=== PATIENT | male | born 1960 | race Caucasian/White ===

== ENCOUNTER 2023-06-14 01:09 | Inpatient (IN) | payer MEDICARE, SELFPAY ==
[2023-06-14] VITALS (79 sets, daily range): BP systolic 80–147; BP diastolic 37–81; PULSE 58–108; RESP 11–23; TEMP 36.4–37.1; O2SAT 78–100; BMI 33.4
--- NOTE | 2023-06-14 02:35 | PC.NURSE ---
Arrival Patient arrived to unit at 0106. All vital signs stable, patient pleasantly confused. Dr. Morris at bedside at about 0200. Orders received to start the following home medications as per home dosing: atorvastatin, lisinopril, albuterol, lovenox, buspar, famotidine, and risperidone. Orders placed.
[2023-06-14 03:11] LABS: Glucose Point of Care 107 mg/dL (70-110)
--- NOTE | 2023-06-14 03:25 | ECG_ITS ---
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 Measurements Intervals [place] Rate: 86 P: 27 MO: 195 QRS: 47 QRSD: 81 T: 48 QT: 330 QTc: 395 Interpretive Statements SINUS RHYTHM No previous ECG available for comparison Electronically Signed On 06-14-2023 12:06:12 CDT by Doug Young M.D. [id number]
[2023-06-14] MEDS: sodium chloride 0.9% 1,000 ML 75 ML IV (03:46)
[2023-06-14] MEDS: pantoprazole 40 mg SDV IVP (03:47)
[2023-06-14 05:18] LABS: Basophils # 0.1 10^3/uL (0.0-0.1); Basophils % 0.8 %; Eosinophils % 0.3 %; Hematocrit 30.5 % (37-53); Lymphocytes # 1.1 10^3/uL (0.8-4.8); Mean Corpuscular HGB Conc 32.1 g/dL (30-55); Mean Corpuscular Hemoglobin 30.7 pg (27-33); Mean Corpuscular Volume 95.6 fl (82-101); Mean Platelet Volume 9.7 fL (7.4-10.4); Monocytes # 0.6 10^3/uL (0.2-0.9); Monocytes % 9.5 %; Neutrophils # 4.52 10^3/uL (1.8-7.7); Neutrophils % 71.9 %; Nucleated Red Blood Cells % 0 %; Platelet Count 227 10^3/cmm (157-399); Red Blood Count 3.19 10^6/uL (3.85-5.65); Red Cell Distribution Width 14.3 % (12.1-15.1); White Blood Count 6.29 10^3/uL (3.29-11.43)
--- NOTE | 2023-06-14 05:22 | PM.HP ---
Providers/Chief Complaint Admitting Physician: Kavita Morris MD Chief Complaint: AMS, renal failure History of Present Illness Jc Alfonso is a 62 year old male with history of asthma/COPD ,depression hypertension GERD was transferred from [facility] for acute renal failure. As per the ER physician he was brought in by his girlfriend for altered mental status. She reported that he did not take his regular home medications for the last 2 days. He was found to be confused and on arrival in ER was found to have BUN 92 , CPK 191 and and serum creatinine of 7.6. He was also positive for amphetamine. He received 4 L of fluids in ER and creatinine improved from 7.6-5.9. No prior history of CKD. On arrival he was awake and oriented x2. He denied any nausea vomiting diarrhea urinary or bowel complaints. His KUB and CT abdomen was normal. Review of Systems Narrative: Review of systems is negative except for HPI Medications/Allergies Home Medications Medication Instructions Recorded Confirmed Last Taken Type albuterol 90 mcg/actuation aerosol 90 mcg inhalation Q4H PRN 06/14/23 06/14/23 Unknown History inhaler Shortness Of Breath atorvastatin 40 mg tablet 40 mg PO DAILY 06/14/23 06/14/23 Unknown History budesonide-formoterol HFA 160 2 puff inhalation BID 06/14/23 06/14/23 Unknown History mcg-4.5 mcg/actuation aerosol inhaler (Symbicort) buspirone 10 mg tablet 10 mg PO BID 06/14/23 06/14/23 Unknown History enoxaparin 80 mg/0.8 mL 80 mg SUBCUT Q12H 06/14/23 06/14/23 Unknown History subcutaneous syringe famotidine 40 mg tablet 40 mg PO BID 06/14/23 06/14/23 Unknown History furosemide 20 mg tablet 20 mg PO BID 06/14/23 06/14/23 Unknown History gabapentin 300 mg capsule 300 mg PO TID 06/14/23 06/14/23 Unknown History lisinopril 40 mg tablet 40 mg PO DAILY 06/14/23 06/14/23 Unknown History meloxicam 15 mg tablet 15 mg PO DAILY 06/14/23 06/14/23 Unknown History risperidone 1 mg tablet 1 mg PO BID 06/14/23 06/14/23 Unknown History spironolactone 25 mg tablet 25 mg PO DAILY 06/14/23 06/14/23 Unknown History tiotropium bromide 18 mcg capsule 18 mcg inhalation DAILY 06/14/23 06/14/23 Unknown History with inhalation device (Spiriva with HandiHaler) Allergies Allergy/AdvReac Type Severity Reaction Status Date / Time No Known Allergies Allergy Verified 06/14/23 03:43 PFSH Acute PFSH: Medical History (Updated 06/14/23 @ 05:31 by Kavita Morris MD) Arteriopathy, cervical, 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 Data 06/14/23 04:02 06/14/23 04:02 EKG 1: My Interpretation: Normal sinus rhythm A&P Assessment and plan (1) Acute renal failure: Acute renal failure etiology unknown, likely secondary to dehydration Need to rule out acute on chronic renal failure Nephrology consult in a.m. Continue IV fluids for now Recheck labs in a.m. (2) Altered mental status: Altered mental status likely secondary to drug overdose. Will monitor in ICU for withdrawal Seizure and fall precautions He is hemodynamically stable for now Continue IV fluids normal saline at 75 MLS per hour. Plan Continue home medications Clear liquid for now Full code Attestations Medical Necessity Statement*: Needs continued hospitalization for more than 2 more days for acute renal failure and altered mental status. Needs nephrology consult and management Time Spent in Patient Care: 35 minutes Coding Level of Care Code Critical Care >/= 30 minutes Diagnoses Acute renal failure N17.9 Altered mental status R41.82 Time Spent (min) 35
[2023-06-14 05:35] LABS: Alanine Aminotransferase 11 U/L (0-41); Albumin Level 3.8 g/dL (3.5-5.2); Alkaline Phosphatase 91 U/L (40-130); Anion Gap 16.8 (5-19); Aspartate Amino Transferase 26 U/L (0-40); Blood Urea Nitrogen 74 mg/dL (8-23); Calcium 8.7 mg/dL (8.5-10.5); Carbon Dioxide 15 mmol/L (22-29); Chloride 114 mmol/L (98-107); Globulin 3.2 g/dL (1.3-4.6); Glomerular Filtration Rate 15.4 mL/min (90-130); Glucose 95 mg/dL (65-115); Magnesium 2.1 mg/dL (1.7-2.3); Osmolality Calculated 312 mOsm/kg (285-295); Phosphorus 3.8 mg/dL (2.5-4.5); Potassium 5.8 mmol/L (3.5-5.1); Sodium 140 mmol/L (136-145); Total Bilirubin 0.2 mg/dL (0.15-1.2)
[2023-06-14] MEDS: enoxaparin 80 mg/0.8 mL Syringe SUBCUT (05:35)
[2023-06-14] MEDS: sodium chloride 0.9% 1,000 ML 999 ML IV ×2 (06:29→21:46)
--- NOTE | 2023-06-14 06:35 | PC.NURSE ---
Blood Pressure Patient's blood pressure MAPs ranging from 55-61 while resting. Cheetah assessment performed; patient fluid responsive with an SVI of 10.4%. Dr. Morris notified; order received for 1 L NS bolus once. See MAR for details.
[2023-06-14] MEDS: albuterol 2.5 mg/3 mL Neb INHALATION ×4 (07:43→19:59)
[2023-06-14] MEDS: ipratropium 0.5 mg/2.5 mL Neb INHALATION ×4 (07:43→19:59)
--- NOTE | 2023-06-14 08:41 | USCV_ITS ---
Jc Alfonso Age: 62 Gender: M : 1960 Exam Date: 06/14/2023 09:00 Ordering Phys: Feroz Bolivar MD Technologist: Martir Bernal [place] [facility] [place]: chest pain BP: 128 / 80 HR: 93 Rhythm: Sinus Technical Quality: Suboptimal MEASUREMENTS (Male / Female) Normal Values 2D ECHO LV Diastolic Diameter PLAX 4.4 cm 4.2 - 5.9 / 3.9 - 5.3 cm LV Systolic Diameter PLAX 3.1 cm IVS Diastolic Thickness 1.1 cm 0.6 - 1.0 / 0.6 - 0.9 cm IVS Systolic Thickness 1.6 cm LVPW Diastolic Thickness 1.3 cm 0.6 - 1.0 / 0.6 - 0.9 cm LVPW Systolic Thickness 1.5 cm LVOT Diameter 2.1 cm LV Ejection Fraction 2D Teich 54.3 % LV Ejection Fraction MOD 2C 72.8 % LV Ejection Fraction 2C AL 73.1 % LA Diameter 3.7 cm M-MODE Aortic Annulus Diameter 3.9 cm LA Ao Ratio MM 1.1 MV E Point Septal Separation 0.8 cm DOPPLER AV Peak Velocity 129.0 cm/s LVOT Peak Velocity 95.0 cm/s AV Area Cont Eq vti 3.1 cm squared AV Area Cont Eq pk 2.5 cm squared MV Area PHT 4.5 cm squared Mitral E to A Ratio 1.1 MV E' Velocity 44.0 cm/s Mitral E to MV E' Ratio 8.2 Mitral E to LV E' Lateral Ratio 8.9 Mitral E to LV E' Septal Ratio 7.8 TR Peak Velocity 95.0 cm/s TR Peak Gradient 3.6 mmHg TV Peak E Velocity 80.0 cm/s Right Atrial Pressure 3.0 mmHg Pulmonary Artery Systolic Pressu 6.6 mmHg RV Acceleration Time 0.1 s FINDINGS Left Ventricle The ventricle is not well seen. It is likely normal in size and function. Ejection fraction is probably 55 to 60%. Diastolic function not determined. Right Ventricle Normal right ventricular size and systolic function. Right Atrium The right atrium is normal in size. Left Atrium The left atrium is normal in size. Mitral Valve Mitral valve not well seen. No obvious stenosis or regurgitation. Aortic Valve Aortic valve not well seen. No obvious stenosis or regurgitation. Tricuspid Valve Tricuspid valve not well visualized. Pulmonic Valve Pulmonic valve not well visualized. Pericardium Normal pericardium without effusion. Aorta Aorta not well seen. IVC IVC not well seen. CONCLUSIONS The ventricle is not well seen. It is likely normal in size and function. Ejection fraction is probably 55 to 60%. Diastolic function not determined. There are no prior echocardiogram studies to compare. Dr. Deniz Crenshaw MD (Electronically Signed) Final Date: 14 June 2023 18:05 S
--- NOTE | 2023-06-14 08:43 | CT_ITS ---
WS: [id number] CT ABDOMEN PELVIS TECHNIQUE: Noncontrast CT of the abdomen and pelvis with coronal and sagittal reformatted images. CLINICAL INFORMATION: nidia, ? obs nephropathy COMPARISON: CT 06/13/2023 and 08/18/2018 DLP: 826.[address] scans at [facility] use at least one of these dose optimization techniques: automated e xposure control; mA and/or kV adjustment per patient size (includes targeted exams where dose is matc hed to clinical indication); or iterative reconstruction. FINDINGS: Lung bases are well aerated. Slight subsegmental atelectasis in the lung bases. Normal noncontrast li geraldo and spleen. Normal GE junction. Adrenal glands are normal. Aortic graft which arises from the distal thoracic aorta. In line common iliac arteries arising from the graft. Contrast not administered. IVC filter. Small renal cysts bilaterally. Intramuscular lipoma with calcifications LEFT mid lateral abdominal wall. Increased attenuation RIGHT renal lesion likely hyperdense cyst unchanged since 023. Noncontrast gallbladder appears normal. Noncontrast pancreas appears normal. Adrenal glands are normal. No hydronephrosis. Chan catheter. Bladder is decompressed. No abdominal or pelvic lymphadeno yulissa. Widemouth fat-containing umbilical hernia. No herniated bowel. Hyperdense mixed attenuation hematoma in the LEFT rectus abdominous unchanged since 06/13/2023. Some ov erlying induration. Recommend follow-up to resolution. Normal sigmoid colon. No evidence of small or large bowel obstruction. IMPRESSION: 1. Mixed attenuation LEFT rectus sheath hematoma unchanged since 06/13/2023. Recommend follow-up to re solution. This measures approximately 2.6 x 4.2 x 7.3 cm AP by transverse by craniocaudal. 2. No hydronephrosis in either kidney. 3. Bilateral renal cysts. Some are too small to characterize. Increased attenuation RIGHT renal lesi on likely proteinaceous or hemorrhagic cyst. This can be followed up with ultrasound on an elective b asis. 4. Widemouth umbilical hernia containing fat. No herniated bowel. No evidence of bowel obstruction. 5. Aortic graft from the distal thoracic aorta inline with both common iliac arteries. Contrast not administered. 6. No other acute findings.
[2023-06-14] MEDS: gabapentin 300 mg Capsule PO ×3 (08:55→21:46)
[2023-06-14] MEDS: BuSPIRONE 10 mg Tablet PO ×2 (08:55→17:57)
[2023-06-14] MEDS: risperiDONE 1 mg Tablet PO ×2 (08:55→17:57)
[2023-06-14] MEDS: famotidine 20 mg Tablet 40 MG PO ×2 (08:55→17:57)
--- NOTE | 2023-06-14 09:05 | USCV_ITS ---
Jc Alfonso Age: 62 Gender: M : 1960 Exam Date: 06/14/2023 09:14 Ordering Phys: Feroz Bolivar MD Technologist: Martir Bernal [place] [facility] [place]: ? pt claims had aaa repair HISTORY: Diameter (cm) AP x Transverse x Length Velocity (cm/s) Waveform Prox Aorta: 2.24 x 2.55 x 73.00 Biphasic Mid Aorta: 1.82 x 2.75 x 45.10 Biphasic Distal Aorta: 2.33 x 1.43 x 48.30 Biphasic Right Iliac Prox: 1.26 x 1.40 x 77.30 Biphasic Left Iliac Prox: 1.54 x 1.61 x 83.00 Biphasic Stent Prox Landing x x Aneurysmal Sac Max x x Lt Lat Sac Dim Rt Lat Sac Dim Stent Dist Landing x x Right Iliac Stent x x Left Iliac Stent x x Right Renal Art Left Renal Art FINDINGS: Comparison: none available. A complete assessment of the abdominal aorta was not possible. No evidence of abdominal aortic aneurysm. No significant stenosis noted in the abdominal aorta. CONCLUSIONS A complete assessment of the abdominal aorta was not possible. Ectatic abdominal aorta with evidence of atherosclerotic plaque noted. Dr. Alondra Pierre DO (Electronically Signed) Final Date: 16 June 2023 07:33 S
[2023-06-14 09:27] LABS: HIV 1 & 2 Antibody Non-Reactive (Non-Reactiv); HIV 1 & 2 Antigen Non-Reactive (Non-Reactiv)
[2023-06-14 09:28] LABS: Iron 54 ug/dL (59-158); Percent Saturation 22.7 % (20-50); Total Iron Binding Capacity 237 mcg/dl; Unsaturated Iron Binding 183 ug/dL (112-347); Vitamin B12 465 pg/mL (232-1245)
[2023-06-14 09:32] LABS: Hepatitis A Antibody IgM Non-Reactive (Nonreactive); Hepatitis B Core AB, Total Reactive (Nonreactive); Hepatitis B Surface AB 22.7 (11.5-1000); Hepatitis B Surface Antigen Non-Reactive (Nonreactive); Hepatitis C Virus Antibody Non-Reactive (Nonreactive)
[2023-06-14 09:42] LABS: Add Urine Microscopic? YES; Bilirubin Urine Neg (Negative); Blood Urine 2+ (Negative); Glucose Urine UA 1+ (Normal); Ketones Urine Negative (Negative); Leukocyte Esterase Urine 1+ (Negative); Nitrate Urine Negative (Negative); Protein Urine Neg (Negative); Specific Gravity, Urine 1.005 (1.005-1.030); Urine Appearance Clear (CLEAR); Urine Color Straw (Yellow); Urobilinogen Urine Norm (Negative); pH Urine 5 (5-7)
[2023-06-14 09:43] LABS: Bacteria Urine TRACE /hpf; RBC Urine 0-4 /hpf (0-2)
[2023-06-14 10:27] LABS: Partial Thromboplastin Time 34.3 SECONDS (23.9-36.7)
[2023-06-14 10:49] LABS: Creatine Phosphokinase 1357 U/L (39-308)
[2023-06-14] MEDS: sodium bicarbonate 650 mg Tablet PO ×3 (11:01→21:45)
[2023-06-14] MEDS: heparin drip 25,000 UNIT/500 ML PREMIX 26 UNIT IV (11:07)
--- NOTE | 2023-06-14 11:23 | PC.NURSE ---
Heparin gtt stopped as per Dr Richmond's phone call. Abdominal hematoma noted on CT.
[2023-06-14 13:11] LABS: Amphetamines Screen Urine Positive (Negative); Barbiturates Screen Urine Negative (Negative); Benzodiazepines Screen Urine Negative (Negative); Cocaine Screen Urine Negative (Negative); Opiate Screen Urine Negative (Negative); PCP Screen Urine Negative (Negative); THC Screen Urine Negative (Negative)
[2023-06-14] MEDS: insulin regular-human 10 UNIT in SYRINGE 1 EACH IVP (13:13)
[2023-06-14] MEDS: dextrose 50% syringe 50 mL IVP (13:13)
[2023-06-14 13:15] LABS: Potassium, Radom Urine 12 mmol/L; Urine Creatinine 50 mg/dL (39-259); Urine Random Chloride 105 mmol/L; Urine Random Sodium 109 mmol/L
[2023-06-14 13:58] LABS: Eosinophil Urine No Eosinophils Seen; Urine Eosinophil Count 0 (0-0)
--- NOTE | 2023-06-14 14:00 | PC.NURSE ---
Pt is becoming more oreinted/cear. He is able to state his name, , year, month and tell some medical history at this time
[2023-06-14] MEDS: sodium chloride 0.9% 1,000 ML 125 ML IV (16:41)
--- NOTE | 2023-06-14 17:05 | PM.PN ---
Subjective Subjective: Considerably today morning from [facility] for renal failure. Chart reviewed. Examination patient sitting comfortably in bed, slightly confused otherwise AO x2-3 on redirection. Patient states he uses meth twice to thrice a week, daily alcohol with 2-3 bottles of beer and few whiskeys. He follows up with Dr. Vinson. States he takes full dose Lovenox for some procedure done to his aorta though he does not remember the procedure. Otherwise not able to provide much history. Seems to have had around 1500 cc of urine since coming to the ICU. Vitals with mean artery pressure mostly over 65 to systolic blood pressure in high 90s. Afebrile saturating well on room air. Blood work shows anemia with hemoglobin of 9.8, hyperkalemia with potassium of 5.6, uremia with BUN of 73, creatinine of 4.1, high anion gap metabolic acidosis Vitals/I&O/Wt Last Vital Signs Temp 98.7 F 06/14/23 07:45 Pulse 93 06/14/23 16:30 Resp 20 H 06/14/23 16:30 BP 99/62 06/14/23 16:30 Pulse Ox 96 06/14/23 16:30 O2 Del Method Room Air 06/14/23 16:30 06/14/23 06/14/23 06/14/23 06:59 14:59 22:59 Intake Total 425.75 / 425.75 1469.533 / 1469.533 683.75 / 2153.283 Output Total 1250 / 1250 710 / 710 1000 / 1710 Balance -824.25 / -824.25 759.533 / 759.533 -316.25 / 443.283 Weight last 48 hrs Weight 93.894 kg Weight 93.894 kg Physical Exam Narrative: General: No acute distress, AO x 2-3 with episodes of confusion HEENT: PERRLA, pupils bilaterally equal and reactive Chest: Normal vesicular breath sounds, no added sounds, equal good air entry bilaterally CVS: S1-S2 regular, no murmurs, no tachycardia, no gallops, no rubs Abdomen: Soft, nontender, no organomegaly, bowel sounds present Neuro: No focal deficits, no facial deformity, AO x3, power 5/5 in all limbs Urinary Catheter Management: Chan: Cath Placed During This Visit: no Reason for Continuing Indwelling Catheter: Accurate Measurement of Urinary Output in Critically Ill Patients Data 06/14/23 04:02 06/14/23 04:10 A&P Assessment and plan (1) Acute renal failure: Most likely in setting of dehydration from poor oral intake while being under influence of amphetamines and alcohol along with chronic oral medications including lisinopril and meloxicam. Medical reconciliation done for nephrotoxic drugs. For now we will stop lisinopril meloxicam spironolactone and Lasix. Check CT abdomen pelvis to rule out obstructive nephropathy. Also gives history of some kind of aortic procedure. Will monitor on CT. Ultrasound abdomen pelvis to monitor for any endovascularly. Unfortunately cannot do CTA given acute kidney injury. Monitor renal panel every 12 hourly. Check urinalysis, urine lites, urine creatinine, urine eosinophils. Strict input output charting. IV hydration with normal saline at 125 cc/h. Check hepatitis panel, HIV, CPK. Check echocardiogram (2) Altered mental status: Altered mental status likely secondary to uremia along with alcohol use and drug overdose. Frequent reorientation. Fluid as above. Monitor for CIWA protocol. (3) Metabolic acidosis: Most likely in setting of acute kidney injury. IV hydration as above. Monitor every 12 hourly. Start on sodium bicarbonate oral 650 3 times daily. If persistent metabolic acidosis will plan for ABG and possible bicarb drip. (4) Hyperkalemia: D50 with 10 units of insulin. In setting of LASHON and lisinopril. Every 12 hourly as above. (5) S/P insertion of endovascular thoracic aortic stent graft: Chronic procedure. Will try to get documents from outpatient hospital regarding further management. Seems to be on anticoagulation chronically with Lovenox 80 mg every 12 hourly. Not sure of the reason. Check for possible thrombus if possible through ultrasound. Cannot do CTA because of LASHON. (6) Rectus sheath hematoma: For now hold off on Lovenox given rectus sheath hematoma. Discussed with radiology. Seems to be relatively fresh. Monitor for anemia or hypotension. (7) Alcohol dependence: (8) Amphetamine abuse: Plan Continue other chronic home medications. Clear liquid diet Famotidine for PUD prophylaxis Attestations Medical Necessity Statement*: Requires further hospitalization for management of acute renal failure with metabolic high anion gap acidosis, persistent hyperkalemia, rectus sheath hematoma in setting of chronic anticoagulation for a possible thoracic aortic endovascular graft Coding Level of Care Code Critical Care >/= 30 minutes Critical care time (in minutes): 60 The high probability of a clinically significant, sudden or life threatening deterioration, as referenced in this documentation, required my full and direct attention, intervention and personal management. The critical care time shown is in addition to time spent performing any reported separately billable procedures and includes the following: [x] Data and vital sign review and interpretation [x] Patient assessment, examination and intervention [x] Medication orders and management [x] Patient/Family updates as able [x] Care Coordination and Documentation. Other Coding Information Prolonged care (total time indicated above or notated here) (Monitoring vitals, electrolytes, gathering information from outside hospital, talking to the physicians) Diagnoses Acute renal failure N17.9 Altered mental status R41.82 Metabolic acidosis E87.20 Hyperkalemia E87.5 S/P insertion of endovascular thoracic aortic stent graft Z95.828 Rectus sheath hematoma S30.1XXA Alcohol dependence F10.20 Amphetamine abuse F15.10
[2023-06-14 18:23] LABS: Albumin Level 3.6 g/dL (3.5-5.2); Blood Urea Nitrogen 51 mg/dL (8-23); Calcium 8.6 mg/dL (8.5-10.5); Carbon Dioxide 16 mmol/L (22-29); Chloride 111 mmol/L (98-107); Glomerular Filtration Rate 27.8 mL/min (90-130); Glucose 91 mg/dL (65-115); Phosphorus 3.1 mg/dL (2.5-4.5); Sodium 139 mmol/L (136-145)
[2023-06-14 18:26] LABS: Anion Gap 17.1 (5-19); Potassium 5.1 mmol/L (3.5-5.1)
--- NOTE | 2023-06-14 18:31 | PC.NURSE ---
Shift summary: Pt has became more clearer thinking and speaking throughout the day. VSS. afberile. He remains sinus to sinus tachycardia on monitor. The bruising and firm area around the scar on his left abdomen remains. He was very briefly started on heparin, due to him taking Lovenox at home, until hematoma noted on CT. Heparin discontinued, was on less than 15 minutes. He was started on Sodium Bicarb tablets. D50 and insulin admin once this sift for the high potassium. Pt has denied pain throughout the shift. Peggy, his ex-, was here this afternoon to visit. She stated he told her he smoked pot then afterwards someone told him it was loaded with acid. His BMP is slowly improving. His urine is pale yellow and clear, Output of 2010 ml this shift. Pt did get out of bed with PT, ambulated then sat up in chair for several hours today without difficulty. He did get out of chair by himself to go back to bed.
[2023-06-14 20:59] LABS: ABG PCO2 33.9 mmHg (35-45); ABG PH Result 7.31 (7.35-7.45); Base Excess ABG -8.5 mmol/L (-2.0-2.0); Blood Gas Allen Test Pos; Blood Gas Sample Site Radial, left; Oxygen Device ROOM AIR; PO2 ABG 33.6 mmHg (80.0-100.0)
[2023-06-14 21:03] LABS: Blood Gas Sample Type Venous
[2023-06-14] MEDS: atorvastatin 40 mg Tablet PO (21:46)
[2023-06-14] MEDS: sodium bicarbonate 8.4% 1 mEq/mL 50mL Syr 100 MEQ IVP (21:46)
[2023-06-15] VITALS (48 sets, daily range): BP systolic 72–145; BP diastolic 43–79; PULSE 61–127; RESP 12–24; TEMP 36.7–36.8; O2SAT 92–100
[2023-06-15] MEDS: sodium chloride 0.9% 1,000 ML 125 ML IV ×2 (00:39→08:45)
[2023-06-15] MEDS: pantoprazole 40 mg SDV IVP (03:04)
[2023-06-15 05:05] LABS: Basophils % 0.7 %; Eosinophils # 0.1 10^3/uL (0.0-0.8); Eosinophils % 1.7 %; Hematocrit 28.5 % (37-53); Lymphocytes # 1.4 10^3/uL (0.8-4.8); Lymphocytes % 23.5 %; Mean Corpuscular Hemoglobin 30.3 pg (27-33); Mean Corpuscular Volume 91.9 fl (82-101); Mean Platelet Volume 9.3 fL (7.4-10.4); Monocytes # 0.6 10^3/uL (0.2-0.9); Monocytes % 9.4 %; Neutrophils # 3.83 10^3/uL (1.8-7.7); Neutrophils % 64.2 %; Nucleated Red Blood Cells % 0 %; Platelet Count 211 10^3/cmm (157-399); Red Cell Distribution Width 14.5 % (12.1-15.1); White Blood Count 5.96 10^3/uL (3.29-11.43)
[2023-06-15 05:22] LABS: Estmated Average Glucose 114; Hemoglobin A1C 5.6 % (4.0-6.0)
[2023-06-15 05:26] LABS: Albumin Level 3.4 g/dL (3.5-5.2); Anion Gap 14.6 (5-19); Blood Urea Nitrogen 37 mg/dL (8-23); Calcium 8.1 mg/dL (8.5-10.5); Carbon Dioxide 19 mmol/L (22-29); Chloride 111 mmol/L (98-107); Glomerular Filtration Rate 38.7 mL/min (90-130); Glucose 89 mg/dL (65-115); Phosphorus 2.4 mg/dL (2.5-4.5); Potassium 4.6 mmol/L (3.5-5.1); Sodium 140 mmol/L (136-145)
[2023-06-15 05:28] LABS: Alanine Aminotransferase 12 U/L (0-41); Albumin Level 3.5 g/dL (3.5-5.2); Alkaline Phosphatase 85 U/L (40-130); Anion Gap 14.5 (5-19); Aspartate Amino Transferase 23 U/L (0-40); Blood Urea Nitrogen 35 mg/dL (8-23); Calcium 8.3 mg/dL (8.5-10.5); Carbon Dioxide 18 mmol/L (22-29); Chloride 112 mmol/L (98-107); Glomerular Filtration Rate 44.3 mL/min (90-130); Glucose 94 mg/dL (65-115); Magnesium 1.5 mg/dL (1.7-2.3); Osmolality Calculated 298 mOsm/kg (285-295); Phosphorus 2.4 mg/dL (2.5-4.5); Potassium 4.5 mmol/L (3.5-5.1); Sodium 140 mmol/L (136-145); Total Bilirubin 0.4 mg/dL (0.15-1.2); Total Protein 6.5 g/dL (6.6-8.7)
[2023-06-15 05:41] LABS: Folate Level 13.9 ng/mL (4.5-32.2)
[2023-06-15] MEDS: albuterol 2.5 mg/3 mL Neb INHALATION (08:06)
[2023-06-15] MEDS: ipratropium 0.5 mg/2.5 mL Neb INHALATION ×3 (08:06→20:34)
[2023-06-15] MEDS: famotidine 20 mg Tablet 40 MG PO ×2 (08:37→17:37)
[2023-06-15] MEDS: risperiDONE 1 mg Tablet PO ×2 (08:37→17:37)
[2023-06-15] MEDS: BuSPIRONE 10 mg Tablet PO ×2 (08:39→17:37)
[2023-06-15] MEDS: aspirin 81 mg EC Tablet PO (08:39)
[2023-06-15] MEDS: sodium bicarbonate 650 mg Tablet PO ×3 (08:39→21:08)
[2023-06-15] MEDS: gabapentin 300 mg Capsule PO ×3 (08:39→21:09)
[2023-06-15] MEDS: sodium chloride 0.45% 1,000 ML 100 ML IV ×2 (10:13→21:09)
[2023-06-15] MEDS: magnesium sulfate premix 2 GM/50 ML PIGGYBACK IV (12:50)
[2023-06-15] MEDS: phosphorus 250 mg Tablet PO (12:50)
[2023-06-15 13:33] LABS: C Reactive Protein 23.7 mg/L (0.0-4.9)
[2023-06-15] MEDS: levalbuterol 0.63 mg/3 mL Neb INHALATION ×2 (13:38→20:34)
[2023-06-15 13:58] LABS: Erythrocyte Sedimentation Rate 30 mm/hr (0-10)
[2023-06-15] MEDS: lanolin oint 7 gm 1 APPLIC TOPICAL (15:00)
[2023-06-15 16:41] LABS: Albumin Level 3.7 g/dL (3.5-5.2); Anion Gap 16.4 (5-19); Blood Urea Nitrogen 25 mg/dL (8-23); Calcium 8.5 mg/dL (8.5-10.5); Carbon Dioxide 22 mmol/L (22-29); Chloride 108 mmol/L (98-107); Glomerular Filtration Rate 51.7 mL/min (90-130); Glucose 149 mg/dL (65-115); Phosphorus 2.6 mg/dL (2.5-4.5); Potassium 5.4 mmol/L (3.5-5.1); Sodium 141 mmol/L (136-145)
--- NOTE | 2023-06-15 16:56 | PM.PN ---
Subjective Subjective: No acute events overnight. Today morning patient seen sitting up in chair. Worked with physical therapy. Looks better. More awake and alert. Denies any nausea, vomiting, headache. States he feels as if his legs are swollen and are mildly sore. Patient is able to give more history today. States he is on full anticoagulation because he has a history of multiple blood clots in his life. States he has an IVC filter placed. He has been on anticoagulation with Lovenox for over 10 years. States he failed Coumadin as his INR was very labile. Blood work today shows a stable hemoglobin of 9.4, platelet count stable at 211, CMP done today morning shows a sodium of 140, potassium of 4.6, creatinine improving to 1.8, BUN of 37, calcium of 8.1, magnesium of 1.5 Vitals/I&O/Wt Last Vital Signs Temp 98.3 F 06/15/23 08:15 Pulse 72 06/15/23 15:30 Resp 16 06/15/23 15:30 BP 145/59 06/15/23 15:30 Pulse Ox 99 06/15/23 15:30 O2 Del Method Room Air 06/15/23 15:30 06/15/23 06/15/23 06/15/23 06:59 14:59 22:59 Intake Total 995.833 / 3149.116 2104.167 / 2104.167 Output Total 1500 / 3510 1150 / 1150 Balance -504.167 / -687.735 4897.167 / 2104.167 -1150 / 954.167 Weight last 48 hrs Weight 95.708 kg Weight 93.894 kg Weight 93.894 kg Physical Exam Narrative: General: No acute distress, AO x 2-3 with episodes of confusion HEENT: PERRLA, pupils bilaterally equal and reactive Chest: Normal vesicular breath sounds, no added sounds, equal good air entry bilaterally CVS: S1-S2 regular, no murmurs, no tachycardia, no gallops, no rubs Abdomen: Soft, nontender, no organomegaly, bowel sounds present Neuro: No focal deficits, no facial deformity, AO x3, power 5/5 in all limbs Urinary Catheter Management: Chan: Cath Placed During This Visit: no Reason for Continuing Indwelling Catheter: Accurate Measurement of Urinary Output in Critically Ill Patients Data 06/15/23 04:47 06/15/23 16:05 A&P Assessment and plan (1) Acute renal failure: Most likely in setting of dehydration from poor oral intake while being under influence of amphetamines and alcohol along with chronic oral medications including lisinopril and meloxicam. Medical reconciliation done for nephrotoxic drugs. For now we will stop lisinopril meloxicam spironolactone and Lasix. Renal functions improving. CT abdomen pelvis appreciated for no obstructive nephropathy, rectus sheath hematoma. Abdominal ultrasound appreciated for endovascular graft at thoracic aortic level. No leakage appreciated. CTA could not be done because of LASHON. Monitor renal panel every 12 hourly. Appreciate urinalysis, urine lites, urine creatinine, urine eosinophils. Strict input output charting. Switch IV fluids to half NS at 100 cc/h. Echocardiogram results appreciated. Replete magnesium, phosphorus. (2) Altered mental status: Resolved. Altered mental status likely secondary to uremia along with alcohol use and drug overdose. Frequent reorientation. Monitor for CIWA protocol. (3) Metabolic acidosis: Resolved. Most likely in setting of acute kidney injury. IV hydration as above. Monitor every 12 hourly. For now continue with sodium bicarbonate oral 650 3 times daily. (4) Hyperkalemia: Resolved in the morning but on repeat lab elevated again. D50 with 10 units of insulin. In setting of LASHON and lisinopril. Every 12 hourly as above. (5) S/P insertion of endovascular thoracic aortic stent graft: Chronic for aortic dissection. Will try to get documents from outpatient hospital regarding further management. Seems to be on anticoagulation chronically with Lovenox 80 mg every 12 hourly. 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 (6) Rectus sheath hematoma: For now hold off on Lovenox given rectus sheath hematoma. Discussed with radiology. Seems to be relatively fresh. Patient agreeable to hold off to AC for now, he understands that he is at the risk of stroke, blood clots. Check ESR, CRP, MEGAN panel. Monitor for anemia or hypotension. (7) Alcohol dependence: (8) Amphetamine abuse: Plan Continue other chronic home medications. Advance to renal none dialysis diet Famotidine for PUD prophylaxis SCDs for DVT prophylaxis, if hemoglobin remains stable will add heparin 5000 every 12 hourly for DVT prophylaxis. Discharge plan: Plan to discharge within next 48 to 72 hours to home with possible home health versus home health exercise program as per PT evaluation once medically stable. Attestations Medical Necessity Statement*: Requires further hospitalization for management of acute kidney injury with hyperkalemia, gap metabolic acidosis in setting of dehydration, rectus sheath hematoma in a patient with chronic anticoagulation for endovascular graft Diagnoses Acute renal failure N17.9 Altered mental status R41.82 Metabolic acidosis E87.20 Hyperkalemia E87.5 S/P insertion of endovascular thoracic aortic stent graft Z95.828 Rectus sheath hematoma S30.1XXA Alcohol dependence F10.20 Amphetamine abuse F15.10
[2023-06-15] MEDS: insulin regular-human 10 UNIT in SYRINGE 1 EACH IVP (17:52)
[2023-06-15] MEDS: dextrose 50% syringe 50 mL IVP (17:52)
--- NOTE | 2023-06-15 19:08 | NUR.SHIFT ---
Shift summary: Pt completed alert and oriented today. Per Peggy, his family, he is back to himself. No complaints of pain throughout the shift. Pt OOB at breakfast and has sat up in chair the rest of the sift. He was willing and cooperative with PT. VSS. Afebrile. His meals were advanced to renal non-dialysis diet, he enjoyed it. His creatinine and BUN are improving more today. He had 250mg phosphorus and 2 gram Magnesium replacement today. HIs last potassium level was high at 5.4, so he received D50 and insulin IV to correct. NO changes to the firm/hardened bruised area around the scare on his left abdomen. No BM today. HIs urine output was 1450ml this shift.
[2023-06-15] MEDS: budesonide 0.5 mg/2 mL Neb INHALATION (20:34)
[2023-06-15] MEDS: atorvastatin 40 mg Tablet PO (21:08)
[2023-06-16] VITALS (24 sets, daily range): BP systolic 89–130; BP diastolic 54–69; PULSE 70–93; RESP 12–18; TEMP 36.5–37.6; O2SAT 95–100
[2023-06-16] MEDS: pantoprazole 40 mg SDV IVP (03:36)
[2023-06-16 05:10] LABS: Basophils # 0.1 10^3/uL (0.0-0.1); Basophils % 0.9 %; Eosinophils # 0.1 10^3/uL (0.0-0.8); Hematocrit 28.9 % (37-53); Lymphocytes # 1.2 10^3/uL (0.8-4.8); Lymphocytes % 18.1 %; Mean Corpuscular HGB Conc 32.9 g/dL (30-55); Mean Corpuscular Hemoglobin 30.1 pg (27-33); Mean Corpuscular Volume 91.5 fl (82-101); Mean Platelet Volume 9.7 fL (7.4-10.4); Monocytes # 0.6 10^3/uL (0.2-0.9); Monocytes % 8.5 %; Neutrophils # 4.79 10^3/uL (1.8-7.7); Neutrophils % 70.1 %; Nucleated Red Blood Cells % 0 %; Platelet Count 217 10^3/cmm (157-399); Red Blood Count 3.16 10^6/uL (3.85-5.65); Red Cell Distribution Width 14.2 % (12.1-15.1); White Blood Count 6.84 10^3/uL (3.29-11.43)
[2023-06-16 05:32] LABS: Alanine Aminotransferase 13 U/L (0-41); Albumin Level 3.7 g/dL (3.5-5.2); Alkaline Phosphatase 101 U/L (40-130); Anion Gap 14.5 (5-19); Aspartate Amino Transferase 16 U/L (0-40); Blood Urea Nitrogen 17 mg/dL (8-23); Calcium 8.5 mg/dL (8.5-10.5); Carbon Dioxide 22 mmol/L (22-29); Chloride 106 mmol/L (98-107); Globulin 2.9 g/dL (1.3-4.6); Glomerular Filtration Rate 61.8 mL/min (90-130); Glucose 99 mg/dL (65-115); Osmolality Calculated 288 mOsm/kg (285-295); Potassium 4.5 mmol/L (3.5-5.1); Sodium 138 mmol/L (136-145); Total Bilirubin 0.5 mg/dL (0.15-1.2); Total Protein 6.6 g/dL (6.6-8.7)
[2023-06-16 05:33] LABS: Albumin Level 3.8 g/dL (3.5-5.2); Anion Gap 14.6 (5-19); Blood Urea Nitrogen 17 mg/dL (8-23); Calcium 8.3 mg/dL (8.5-10.5); Carbon Dioxide 22 mmol/L (22-29); Chloride 106 mmol/L (98-107); Glomerular Filtration Rate 61.8 mL/min (90-130); Glucose 97 mg/dL (65-115); Phosphorus 2.5 mg/dL (2.5-4.5); Potassium 4.6 mmol/L (3.5-5.1); Sodium 138 mmol/L (136-145)
[2023-06-16] MEDS: sodium chloride 0.45% 1,000 ML 100 ML IV (06:44)
[2023-06-16] MEDS: budesonide 0.5 mg/2 mL Neb INHALATION (08:24)
[2023-06-16] MEDS: ipratropium 0.5 mg/2.5 mL Neb INHALATION (08:24)
[2023-06-16] MEDS: levalbuterol 0.63 mg/3 mL Neb INHALATION (08:24)
[2023-06-16] MEDS: gabapentin 300 mg Capsule PO (09:17)
[2023-06-16] MEDS: aspirin 81 mg EC Tablet PO (09:18)
[2023-06-16] MEDS: sodium bicarbonate 650 mg Tablet PO (09:18)
[2023-06-16] MEDS: famotidine 20 mg Tablet 40 MG PO (09:18)
[2023-06-16] MEDS: BuSPIRONE 10 mg Tablet PO (09:18)
[2023-06-16] MEDS: risperiDONE 1 mg Tablet PO (09:18)
--- NOTE | 2023-06-16 11:11 | P.DS_ITS ---
Discharge Providers Date of Admission: 06/14/23 01:09 Date of Discharge: June 16, 2023 Attending Provider at Admission: Kavita Morris MD Attending Provider at Discharge: Feroz Bolivar MD Diagnoses at Discharge Discharge Diagnosis (1) Acute renal failure: Status: Acute (2) Altered mental status: Status: Acute (3) Metabolic acidosis: Status: Acute (4) Hyperkalemia: Status: Acute (5) S/P insertion of endovascular thoracic aortic stent graft: Status: Acute (6) Rectus sheath hematoma: Status: Acute (7) Alcohol dependence: Status: Acute (8) Amphetamine abuse: Status: Acute Reason for Visit Reason for Visit: AMS, renal failure Hospital Course Hospital Course Jc Alfonso is a 62 year old male with history of asthma/COPD , hypertension, depression, GERD, thoracic aortic dissection post endovascular graft, on chronic anticoagulation for a possible history of multiple thrombus in past with IVC filter in place, alcohol dependence, amphetamine abuse was transferred from outside hospital where he presented with altered mental status for around 24 hours and was found to have acute renal failure. Patient was admitted to the ICU for management of altered mental status and acute renal failure with presenting creatinine of more than 7, anion gap metabolic acidosis and hyperkalemia. On admission drug screen was positive for amphetamines. CT abdomen pelvis was negative for obstructive nephropathy but showed rectus sheath hematoma. Anticoagulation was withheld and he was treated with IV hydration. Nephrotoxic medications were discontinued. Patient showed gradual improvement in his urine output and creatinine has been back to his baseline for last 24 to 36 hours. Patient's mentation has been back to baseline for last 2 days as well and has been working well with physical therapy and has been advised home exercise program. He has been discharged hemodynamically stable condition with advised to hold off on taking lisinopril, Lasix and spironolactone for now. He is to check his blood pressure daily at home and maintain a blood pressure diary and follow-up with a primary care provider within next 2 weeks for further adjustment of antihypertensive. He is advised to stop meloxicam. He is advised to hold off on taking Lovenox for next 2 weeks given rectus sheath hematoma. He can restart Lovenox from 06/30. He is to recheck his CBC and CMP in 1 month. He is also advised to follow-up with his vascular surgeon 1 month. Discharge plan discussed in detail with patient verbalized understanding. Physical Exam Narrative: General: No acute distress, AO x3 HEENT: PERRLA, pupils bilaterally equal and reactive Chest: Normal vesicular breath sounds, no added sounds, equal good air entry bilaterally CVS: S1-S2 regular, no murmurs, no tachycardia, no gallops, no rubs Abdomen: Soft, nontender, no organomegaly, bowel sounds present Neuro: No focal deficits, no facial deformity, AO x3, power 5/5 in all limbs Urinary Catheter Management: Chan: Cath Placed During This Visit: no Reason for Continuing Indwelling Catheter: Accurate Measurement of Urinary Output in Critically Ill Patients Discharge Data Studies Completed and Pending Completed Studies During Hospitalization Category Date Time Status CT abdomen pelvis wo con [id number] Routine Cat Scan 06/14/23 08:43 Completed CV. echo complete* [id number] Routine Ultrasound 06/14/23 08:41 Completed US abdomen aorta aneurysm screen [CV abd aorta aneury Ultrasound 06/14/23 09:05 Completed scrn [id number]] Routine Pending at discharge Category Date Time Status [facility] Profile Routine Lab 06/15/23 16:05 Received Laboratory Results WBC 6.84 10^3/uL (3.29-11.43) 06/16/23 03:36 RBC 3.16 10^6/uL (3.85-5.65) L 06/16/23 03:36 Hgb 9.50 g/dL (11.27-16.99) L 06/16/23 03:36 Hct 28.9 % (37-53) L 06/16/23 03:36 MCV 91.5 fl (82-101) 06/16/23 03:36 MCH 30.1 pg (27-33) 06/16/23 03:36 MCHC 32.9 g/dL (30-55) 06/16/23 03:36 RDW 14.2 % (12.1-15.1) 06/16/23 03:36 Plt Count 217 10^3/cmm (157-399) 06/16/23 03:36 MPV 9.7 fL (7.4-10.4) 06/16/23 03:36 Neut % (Auto) 70.1 % 06/16/23 03:36 Lymph % (Auto) 18.1 % 06/16/23 03:36 [place]gs % (Auto) 8.5 % 06/16/23 03:36 Eos % (Auto) 2.0 % 06/16/23 03:36 Baso % (Auto) 0.9 % 06/16/23 03:36 Neut # (Auto) 4.79 10^3/uL (1.8-7.7) 06/16/23 03:36 Lymph # (Auto) 1.2 10^3/uL (0.8-4.8) 06/16/23 03:36 [place] # (Auto) 0.6 10^3/uL (0.2-0.9) 06/16/23 03:36 Eos # (Auto) 0.1 10^3/uL (0.0-0.8) 06/16/23 03:36 Baso # (Auto) 0.1 10^3/uL (0.0-0.1) 06/16/23 03:36 Nucleated RBC % (auto) 0 % 06/16/23 03:36 Nucleated RBCs # 0.0 /100WBC 06/16/23 03:36 ESR 30 mm/hr (0-10) H 06/15/23 04:02 APTT 34.3 SECONDS (23.9-36.7) 06/14/23 10:06 Specimen Type Venous 06/14/23 19:40 Sample Site Radial, left 06/14/23 19:40 ABG pH 7.31 (7.35-7.45) L 06/14/23 19:40 ABG pCO2 33.9 mmHg (35-45) L 06/14/23 19:40 ABG pO2 33.6 mmHg (80.0-100.0) L* 06/14/23 19:40 ABG HCO3 17.0 mmol/L (22-26) L 06/14/23 19:40 ABG Base Excess -8.5 mmol/L (-2.0-2.0) L 06/14/23 19:40 Felipe Test Pos 06/14/23 19:40 Hematocrit 28.0 % (42-52) L 06/14/23 19:40 O2 Delivery Device Room air 06/14/23 19:40 Fish Frog Or Oyster Farmer ID ellpe 06/14/23 19:40 Sodium 138 mmol/L (136-145) 06/16/23 03:36 Sodium 138 mmol/L (136-145) 06/16/23 03:36 Potassium 4.5 mmol/L (3.5-5.1) 06/16/23 03:36 Potassium 4.6 mmol/L (3.5-5.1) 06/16/23 03:36 Chloride 106 mmol/L (98-107) 06/16/23 03:36 Chloride 106 mmol/L (98-107) 06/16/23 03:36 Carbon Dioxide 22 mmol/L (22-29) 06/16/23 03:36 Carbon Dioxide 22 mmol/L (22-29) 06/16/23 03:36 Anion Gap 14.5 (5-19) 06/16/23 03:36 Anion Gap 14.6 (5-19) 06/16/23 03:36 BUN 17 mg/dL (8-) 06/16/23 03:36 BUN 17 mg/dL (-) 06/16/23 03:36 Creatinine 1.2 mg/dL (0.7-1.2) 06/16/23 03:36 Creatinine 1.2 mg/dL (0.7-1.2) 06/16/23 03:36 GFR Calculation 61.8 mL/min (90-130) L 06/16/23 03:36 GFR Calculation 61.8 mL/min (90-130) L 06/16/23 03:36 Glucose 97 mg/dL (65-115) 06/16/23 03:36 Glucose 99 mg/dL (65-115) 06/16/23 03:36 POC Glucose 107 mg/dL (70-110) 06/14/23 03:06 Estimat Average Glucose 114 06/15/23 04:47 Hemoglobin A1c 5.6 % (4.0-6.0) 06/15/23 04:47 Calculated Osmolality 288 mOsm/kg (285-295) 06/16/23 03:36 Calcium 8.3 mg/dL (8.5-10.5) L 06/16/23 03:36 Calcium 8.5 mg/dL (8.5-10.5) 06/16/23 03:36 Phosphorus 2.5 mg/dL (2.5-4.5) 06/16/23 03:36 Magnesium 1.5 mg/dL (1.7-2.3) L 06/15/23 04:47 Iron 54 ug/dL (59-158) L 06/14/23 04:02 TIBC 237 mcg/dl 06/14/23 04:02 % Saturation 22.7 % (20-50) 06/14/23 04:02 Unsat Iron Binding 183 ug/dL (112-347) 06/14/23 04:02 Total Bilirubin 0.5 mg/dL (0.15-1.2) 06/16/23 03:36 AST 16 U/L (0-40) 06/16/23 03:36 ALT 13 U/L (0-41) 06/16/23 03:36 Alkaline Phosphatase 101 U/L (40-130) 06/16/23 03:36 Creatine Kinase 1357 U/L (39-308) H* 06/14/23 04:02 C-Reactive Protein 23.7 mg/L (0.0-4.9) H 06/15/23 04:02 Total Protein 6.6 g/dL (6.6-8.7) 06/16/23 03:36 Albumin 3.7 g/dL (3.5-5.2) 06/16/23 03:36 Albumin 3.8 g/dL (3.5-5.2) 06/16/23 03:36 Globulin 2.9 g/dL (1.3-4.6) 06/16/23 03:36 Vitamin B12 465 pg/mL (232-1245) 06/14/23 04:02 Folate 13.9 ng/mL (4.5-32.2) 06/15/23 04:47 TSH 1.00 uIU/mL (0.27-4.20) 06/14/23 04:02 Urine Color Straw (Yellow) 06/14/23 09:04 Urine Appearance Clear (CLEAR) 06/14/23 09:04 Urine pH 5 (5-7) 06/14/23 09:04 Ur Specific [place] 1.005 (1.005-1.030) 06/14/23 09:04 Urine Protein Neg (Negative) 06/14/23 09:04 Urine Glucose (UA) 1+ (Normal) H 06/14/23 09:04 Urine Ketones Negative (Negative) 06/14/23 09:04 Urine Blood 2+ (Negative) H 06/14/23 09:04 Urine Nitrate Negative (Negative) 06/14/23 09:04 Urine Bilirubin Neg (Negative) 06/14/23 09:04 Urine Urobilinogen Norm mg/dL (Negative) 06/14/23 09:04 Ur Leukocyte Esterase 1+ (Negative) H 06/14/23 09:04 Urine RBC 0-4 /hpf (0-2) H 06/14/23 09:04 Urine WBC 5-10 /hpf (0-5) H 06/14/23 09:04 Ur Eosinophil Smear 0 (0-0) 06/14/23 09:04 Ur Squamous Epith Cells None /hpf (0-5) 06/14/23 09:04 Amorphous Sediment Not Reportable 06/14/23 09:04 Urine Bacteria Trace /hpf (NONE) 06/14/23 09:04 Urine Eosinophils No eosinophils seen 06/14/23 09:04 Ur Random Sodium 109 mmol/L 06/14/23 09:04 Ur Random Potassium 12 mmol/L 06/14/23 09:04 Ur Random Chloride 105 mmol/L 06/14/23 09:04 Urine Creatinine 50 mg/dL (39-259) 06/14/23 09:04 Urine Opiates Screen Negative ng/mL (Negative) 06/14/23 09:04 Ur Barbiturates Screen Negative ng/mL (Negative) 06/14/23 09:04 Ur Phencyclidine Scrn Negative ng/mL (Negative) 06/14/23 09:04 Ur Amphetamines Screen Positive ng/mL (Negative) H 06/14/23 09:04 U Benzodiazepines Scrn Negative ng/mL (Negative) 06/14/23 09:04 Urine Cocaine Screen Negative ng/mL (Negative) 06/14/23 09:04 U Marijuana (THC) Screen Negative ng/mL (Negative) 06/14/23 09:04 Hepatitis A IgM Ab Non-reactive (Nonreactive) 06/14/23 04:02 Hep Bs Antigen Non-reactive (Nonreactive) 06/14/23 04:02 Hep Bs Antibody 22.7 (11.5-1000) 06/14/23 04:02 Hep B Core Total Ab Reactive (Nonreactive) H 06/14/23 04:02 Hepatitis C Antibody Non-reactive (Nonreactive) 06/14/23 04:02 HIV 1&2 Ab & HIV 1 Ag Non-reactive (Non-Reactiv) 06/14/23 04:02 HIV 1&2 Antibody Non-reactive (Non-Reactiv) 06/14/23 04:[address] Abd/Pel: Radiologist's impression: IMPRESSION: 1.? Mixed attenuation LEFT rectus sheath hematoma unchanged since 06/13/2023. Recommend follow-up to resolution. This measures approximately 2.6 x 4.2 x 7.3 cm AP by transverse by craniocaudal. 2.? No hydronephrosis in either kidney. 3.? Bilateral renal cysts. Some are too small to characterize. Increased attenuation RIGHT renal lesion likely proteinaceous or hemorrhagic cyst. This can be followed up with ultrasound on an elective basis. 4.? [place] umbilical hernia containing fat. No herniated bowel. No evidence of bowel obstruction. 5.? Aortic graft from the distal thoracic aorta inline with both common iliac arteries. Contrast not administered. 6.? No other acute findings. Dictated By: Devendra Cota MD US: Radiologist's impression: FINDINGS: ?Comparison:? none available. ?A complete assessment of the abdominal aorta was not possible. ?No evidence of abdominal aortic aneurysm. No significant stenosis noted?in the abdominal aorta. ?CONCLUSIONS ?A complete assessment of the abdominal aorta was not possible. ?Ectatic abdominal aorta with evidence of atherosclerotic plaque noted. ?Dr. Alondra Pierre DO ?(Electronically Signed) ?Final Date: ? ? ? 16 June 2023 ? 07:33 Vitals Last Vital Signs Temp 98.4 F 06/16/23 06:30 Pulse 88 06/16/23 08:38 Resp 15 06/16/23 08:25 BP 116/54 06/16/23 06:30 Pulse Ox 98 06/16/23 08:25 O2 Del Method Room Air 06/16/23 08:25 Discharge Plan Discharge Patient Disposition: Home Condition: Stable Prescriptions: Continued albuterol 90 mcg/actuation Aerosol 90 mcg INHALATION Q4H PRN (Reason: Shortness Of Breath) atorvastatin 40 mg tablet 40 mg PO DAILY risperidone 1 mg tablet 1 mg PO BID buspirone 10 mg tablet 10 mg PO BID famotidine 40 mg tablet 40 mg PO BID Spiriva with HandiHaler 18 mcg capsule, w/inhalation device 18 mcg INHALATION DAILY Symbicort 160-4.5 mcg/actuation HFA aerosol inhaler 2 puff INHALATION BID gabapentin 300 mg capsule 300 mg PO TID Held enoxaparin 80 mg/0.8 mL syringe 80 mg SUBCUT Q12H Hold Instructions: Resume on 06/30/23. Discontinued spironolactone 25 mg tablet 25 mg PO DAILY lisinopril 40 mg tablet 40 mg PO DAILY furosemide 20 mg tablet 20 mg PO BID meloxicam 15 mg tablet 15 mg PO DAILY Discharge Orders: Discharge Order (Routine); Ordered 06/16/23 Ordered By: Feroz Bolivar Referrals: Alex Morales [Family Provider] - 06/22/23 12:20 pm Discharge Diet: Cardiac Discharge Activity: Resume usual activity and Increase activity as tolerated Patient Instructions: Opioid Safety Activity Restrictions/Additional Instructions: Please check your blood pressure daily at home and maintain a blood pressure diary and follow-up with your primary care provider for adjustment of antihypertensives. For now do not take lisinopril, spironolactone and Lasix. Do not take meloxicam going forward. Do not take your Lovenox shots for next 2 weeks. He can restart Lovenox shot from 06/30. You should have a repeat CBC and CMP in 1 month which would be 1 week after restarting Lovenox shots. Please follow-up with your primary care provider within next 2 weeks and with your vascular surgeon within next 1 month. Discharge Attestations Time Spent in Discharge Care*: greater than 30 min Specific Discharge Activities: educating patient, educating and/or supporting family/caregiver, discussing with pcp/other providers, discussing with lead case manager/social workers/dc planners, documenting/other paperwork and evaluating patient/reviewing data Status at Discharge: Cognitive status at discharge: cognitively intact , Behavioral status at discharge: cooperative , Functional status at discharge: independent ambulation , Overall status at discharge: patient is back to baseline Quality Metrics Clinical Quality Measures [ No reported AMI, CVA or VTE this stay] Coding Level of Care Code 85488 Total time (in minutes) for Discharge: 60 Diagnoses Acute renal failure N17.9 Altered mental status R41.82 Metabolic acidosis E87.20 Hyperkalemia E87.5 S/P insertion of endovascular thoracic aortic stent graft Z95.828 Rectus sheath hematoma S30.1XXA Alcohol dependence F10.20 Amphetamine abuse F15.10
[2023-06-16 12:40] LABS: Anti-Double Strand DNA AB <1 IU/mL; Jo-1 Antibody <1.0 NEG AI (<1.0 NEG); SM/RNP Antibodies <1.0 NEG AI (<1.0 NEG); SS-B/LA IGG <1.0 NEG AI (<1.0 NEG); Scleroderma Ab(Scl-70) Ab <1.0 NEG AI (<1.0 NEG); Ss-A/Ro Igg <1.0 NEG AI (<1.0 NEG)
--- NOTE | 2023-06-16 14:36 | PC.NURSE ---
Discharge instructions provided and discussed. Follow up appts. Medication review thoroughly discussed and reviewed with pt: No Lovenox, meloxicam Lisinpril, Lasix or Spirolactone at this time, to be held. Ex- Peggy , at bedside during this discussion. Other family member to provided ride home, awaiitng their arrival.
--- NOTE | 2023-06-16 14:50 | PC.NURSE ---
Ride home arrived. Pt assisted to front entrance via W/C.
== END 2023-06-16 14:35 | disposition home health service (06) | DRG 683 ==
PROVIDERS: Admitting Provider Internal Medicine; Family Provider Family Medicine; Visit Provider Student in an Organized Health Care Education/Training Program
DX: N17.9 Acute kidney failure, unspecified (principal); E87.20 Acidosis, unspecified; J44.9 Chronic obstructive pulmonary disease, unspecified; I10 Essential (primary) hypertension; F32.A Depression, unspecified; K21.9 Gastro-esophageal reflux disease without esophagitis; Z86.718 Personal history of other venous thrombosis and embolism; Z95.828 Presence of other vascular implants and grafts; F10.20 Alcohol dependence, uncomplicated; F15.10 Other stimulant abuse, uncomplicated; E87.5 Hyperkalemia; S30.1XXA Contusion of abdominal wall, initial encounter; X58.XXXA Exposure to other specified factors, initial encounter; Z79.51 Long term (current) use of inhaled steroids; T43.621A Poisoning by amphetamines, accidental (unintentional), initial encounter; R41.82 Altered mental status, unspecified; E86.0 Dehydration
CPT/HCPCS: 36415; 36416; 36600; 74176; 76706; 80053; 80069; 80306; 81001; 82436; 82550; 82570; 82607; 82746; 82803; 82962; 83036; 83540; 83550; 83735; 84100; 84133; 84300; 84443; 85025; 85651; 85730; 85999; 86140; 86225; 86235; 86705; 86706; 86709; 86803; 87340; 87806; 93005; 93306; 94640; 96372; 96376; 97110; 97116; 97162; C9113; J1644; J1650; J1815; J3475; J7030; J7613; J7614; J7626; J7644

== ENCOUNTER → 2024-08-13 08:42 | Outpatient (BNVA) | payer MEDICARE, SELFPAY | PROVIDERS: Family Provider Family Medicine; Referring Provider Family Medicine; Visit Provider Student in an Organized Health Care Education/Training Program | DX: L02.211 Cutaneous abscess of abdominal wall (principal) | CPT/HCPCS: 99203 ==

== ENCOUNTER → 2024-08-30 07:59 | Outpatient (BNVA) | payer MEDICARE, SELFPAY | PROVIDERS: Family Provider Family Medicine; Visit Provider Student in an Organized Health Care Education/Training Program | DX: L02.91 Cutaneous abscess, unspecified (principal) | CPT/HCPCS: 99213 ==

== ENCOUNTER 2025-09-05 15:36 | Inpatient (IN) | payer MEDICARE, SELFPAY ==
--- NOTE | 2025-09-05 15:33 | PM.CONSULT ---
Providers/Reason For Consult Consulting Physician/Specialty*: Dr. Rico general surgery Reason for Consult*: Abdominal wall cellulitis Primary Care Provider: Alex Morales History of Present Illness History of Present Illness Jc Alfonso is a 64 year old male whom surgery was consulted for [address] scan finding of a possible abdominal wall abscess. Patient applies Lovenox shots to the side. On exam there is no fluctuance. He does have cellulitis. Medications/Allergies Home Medications ?Medication ?Instructions ?Recorded ?Confirmed ?Last Taken ?Type albuterol 90 mcg/actuation aerosol 90 mcg inhalation Q4H PRN 06/14/23 09/05/25 09/05/25 History inhaler Shortness Of Breath atorvastatin 40 mg tablet 40 mg PO DAILY 06/14/23 09/05/25 Unknown History budesonide-formoterol HFA 160 2 puff inhalation BID 06/14/23 08/30/24 Unknown History mcg-4.5 mcg/actuation aerosol inhaler (Symbicort) buspirone 10 mg tablet 10 mg PO BID 06/14/23 09/05/25 Unknown History enoxaparin 80 mg/0.8 mL 80 mg SUBCUT Q12H 06/14/23 09/05/25 09/04/25 History subcutaneous syringe Held on 06/16/23. Instructions: Resume on 06/30/23. famotidine 40 mg tablet 40 mg PO BID 06/14/23 09/05/25 Unknown History gabapentin 300 mg capsule 600 mg PO TID 06/14/23 09/05/25 Unknown History risperidone 1 mg tablet 1 mg PO BID 06/14/23 09/05/25 Unknown History tiotropium bromide 18 mcg capsule 18 mcg inhalation DAILY 06/14/23 09/05/25 Unknown History with inhalation device (Spiriva with HandiHaler) albuterol sulfate 90 mcg/actuation puff inhalation Q4H PRN Shortness 09/05/25 Unknown History aerosol inhaler Of Breath Or Wheezing baclofen 10 mg tablet mg 09/05/25 Unknown History Allergies Allergy/AdvReac Type Severity Reaction Status Date / Time No Known Allergies Allergy Verified 08/30/24 08:09 PFSH Acute PFSH: Medical History (Updated 09/05/25 @ 16:19 by Junito Alonso NP) Presence of IVC filter Alcohol dependence Amphetamine abuse Aortic dissection, thoracic Arteriopathy, cervical, 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 No lymphadenopathy. Heart: Regular rate and rhythm. Abdomen: Soft, nontender, nondistended. Cellulitis left paramedian with multiple stab wounds to Lovenox administration. No fluctuance. Data 09/05/25 17:10 09/05/25 17:10 A&P Assessment and plan 1. Abdominal wall cellulitis: Plan: 64-year-old male who presents with left paramedian abdominal wall cellulitis secondary to Lovenox administration. CT scan finding of a possible 2 x 1 cm abdominal wall abscess prompted a surgical consultation. On physical exam there are no areas of fluctuance that can be drained. Recommend treating with antibiotics. May benefit from transition to oral anticoagulation. Patient instructed not to inject Lovenox to the site. Discussed with hospitalist. PDMP PDMP Reviewed: Not Reviewed Coding Level of Care Code 20562 Diagnoses Abdominal wall cellulitis L03.311
--- OUTSIDE RECORDS SUMMARY | 2025-09-05 15:38 | XMS_ITS | Encounter Summary ---
Author Organization [facility] Address [address] [place] [address] Care Team Providers Care [employer] Officer Name Role Phone Alex Morales MD Primary Care Provider [phone] Encounter Details Date Type Department Care Team (Late Contact Info) Description 09/02/2025 Abstract [facility] [address] [address] Provider, Abstract NO ADDRESS ON FILE Social History Tobacco Use Types Packs/Day Years Used Date Smoking Tobacco: Every Day Cigarettes Smokeless Tobacco: Never Alcohol Use Standard Drinks/Week Comments Yes 4 (1 standard drink = 0.6 oz pur e alcohol) Feeling Safe Answer Date Recorded Are you in a relationship wi th someone who hurts you emotionally and/or physically? No 12/14/2023 Sex and Gender Information Value Date Recorded Sex Assigned at Not on file Legal Sex Male 8:19 AM HIM ANALYST Gender Identity Not on file Sexual Orientation Not on file documented as of this encounter Plan of Treatment Upcoming Encounters Date Type Department Care Team (Late Contact Info) Description 10/29/2025 1:00 PM HIM ANALYST Office Visit [facility] [address] [phone] Alex Morales MD [address] [phone] documented as of this encounter Visit Diagnoses Not on filedocumented in this encounter Care Teams [employer] Officer Relationship Specialty Start Date End Date Alex Morales MD [address] [phone] PCP - General 01/11/21 documented as of this encounter
--- OUTSIDE RECORDS SUMMARY | 2025-09-05 15:38 | XMS_ITS | Clinical Summary ---
Author Organization [facility] [address] [facility] Address [address] [place] [address] Care Team Providers Care Field Collector Name Role Phone Alex Morales MD Primary Care Provider [phone] Allergies No known active allergies Medications Nebulizer Accessories KitIndications:Ch ronic obstructive pulmonary disease, unspecified COPD type (CMS/HCC) Length of need 99 months Disposable Nebulizer Kit, 2 per month, filters , areosol mask: Yes. Name of Medication: Albuterol 1 Each 023 Active albuterol (PROVENTIL,VENTOL IN) 2.5 mg /3 mL (0.083 %) Solution for NebulizationIndic ations:Simple chronic bronchitis (CMS/HCC),Chronic obstructive pulmonary disease, unspecified COPD type (CMS/HCC) Take 3 mL (2.5 mg) by inhalation every 6 hours as needed for Shortness of Breath. 300 mL 11 024 Active oxygen home deliveryIndicatio ns:Hypoxia,Low oxygen saturation Home Oxygen Concentrator yes at 2 L/M Rest, 2 L/M Activity, 2 L/M Sleep, Delivery Device: Nasal Cannula Portability: yes, 2 L/M Rest, 2 L/M Activity, May provide device best for patient needs(E system,home fill, conserving device) Length of Need: 99 months 1 Each 024 Active nebulizerIndicati ons:Chronic obstructive pulmonary disease, unspecified COPD type (CMS/HCC) Length of need 99 months Nebulizer with compressor, Kit: Disposable Nebulizer Kit, 2 per month, filters , areosol mask: Yes. Name of Medication: Albuterol 1 Each 024 Active budesonide-formot Alessandra (Symbicort) 160-4.5 mcg/actuation HFA Aerosol InhalerIndication s:Chronic obstructive pulmonary disease, unspecified COPD type (CMS/HCC),Simple chronic bronchitis (CMS/HCC) Take 2 Puffs by inhalation 2 times daily. INHALE TWO PUFFS BY MOUTH TWICE DAILY (BULK) 10.2 Gram 11 024 Active albuterol sulfate HFA 90 mcg/actuation aerosol inhalerIndication s:Chronic obstructive pulmonary disease, unspecified COPD type (CMS/HCC),Simple chronic bronchitis (CMS/HCC) Take 2 Puffs by inhalation every 4 hours as needed for Shortness of Breath. 18 Gram 11 024 Active portable oxygenIndications :Chronic respiratory failure with hypoxia (CMS/HCC),Panlobu lar emphysema (CMS/HCC),Depende nce on supplemental oxygen when ambulating Face to Face completed within 30 days: yes Length of Need: 99 months By: Nasal Cannula Continuously at 3 L/min. 1 Each 025 Active mupirocin (BACTROBAN) 2 % OintmentIndicatio ns:Skin abrasion Apply to affected area daily. 80 Gram 5 025 Active gabapentin (NEURONTIN) 600 mg tabletIndications :Peripheral polyneuropathy Take 1 Tablet (600 mg) by mouth 3 times daily. 270 Tablet 1 025 Active doxepin (SINEquan) 10 mg capsuleIndication s:Insomnia, unspecified type Take 1 Capsule (10 mg) by mouth daily at bedtime. 30 Capsule 2 025 Active risperiDONE (RisperDAL) 1 mg tabletIndications :Intermittent explosive disorder Take 1 tablet by mouth twice daily 200 Tablet 025 Active enoxaparin (LOVENOX) 80 mg/0.8 mL injectionIndicati ons:History of aortic dissection,S/P aortic dissection repair,jail (current) use of anticoagulants,Hy percoagulable state,Personal history of DVT (deep vein thrombosis),Histo ry of pulmonary embolism INJECT 1 SYRINGE (80MG) SUBCUTANEOUSLY EVERY 12 HOURS 48 mL 2 025 Active Spiriva with HandiHaler 18 mcg capsuleIndication s:Chronic obstructive pulmonary disease, unspecified COPD type (CMS/HCC),Simple chronic bronchitis (CMS/HCC) Inhale 1 puff by mouth once daily 30 Capsule 5 025 Active famotidine (PEPCID) 40 mg tabletIndications :Gastroesophageal reflux disease without esophagitis Take 1 tablet by mouth twice daily 60 Tablet 2 025 Active baclofen (LIORESAL) 10 mg tabletIndications :Chronic midline low back pain with bilateral sciatica TAKE 1 TABLET BY MOUTH THREE TIMES DAILY NEEDED FOR PAIN 90 Tablet 5 025 Active busPIRone (BUSPAR) 10 mg tabletIndications :Intermittent explosive disorder,LOUISE (generalized anxiety disorder) Take 1 tablet by mouth twice daily 200 Tablet 2 025 Active atorvastatin (LIPITOR) 40 mg tabletIndications :Aortic atherosclerosis,H istory of aortic dissection,S/P aortic dissection repair,Mixed hyperlipidemia TAKE 1 TABLET BY MOUTH ONCE DAILY WITH SUPPER 100 Tablet 2 025 Active famotidine (PEPCID) 40 mg tabletIndications :Gastroesophageal reflux disease without esophagitis Take 1 Tablet (40 mg) by mouth 2 times daily. 60 Tablet 11 024 2024 Discontinued busPIRone (BUSPAR) 10 mg tabletIndications :Intermittent explosive disorder,LOUISE (generalized anxiety disorder) Take 1 Tablet (10 mg) by mouth 2 times daily. 60 Tablet 11 024 2024 Discontinued baclofen (LIORESAL) 10 mg tabletIndications :Chronic midline low back pain with bilateral sciatica Take 1 Tablet (10 mg) by mouth 3 times daily as needed for Pain. 90 Tablet 11 024 2024 Discontinued atorvastatin (LIPITOR) 40 mg tabletIndications :Aortic atherosclerosis,H istory of aortic dissection,S/P aortic dissection repair,Mixed hyperlipidemia Take 1 Tablet (40 mg) by mouth daily with supper. 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 n 01/22/2021 Dependent edema 01/22/2021 Hypercoagulable state 01/22/2021 Fatty liver 11/12/2019 Panlobular emphysema 11/12/2019 Aortic atherosclerosis 09/25/2019 Overview (02/06/2021): Added per PV query reply Intermittent explosive disorder 04/13/2019 Prediabetes 04/13/2019 Severe obesity (BMI 35.0-39.9) with comorbidity 03/23/2019 ETOH abuse 03/23/2019 GERD (gastroesophageal reflux disease) 8 History of pulmonary embolism 04/16/2018 HLD (hyperlipidemia) 04/16/2018 Personal history of DVT (deep vein thrombosis) 0 04/16/2018 S/P aortic dissection repair 04/16/2018 LOUISE (generalized anxiety disorder) 04/16/2018 Chronic midline low back pain with bilateral sci atica 04/16/2018 History of aortic dissection 04/16/2018 Tobacco use 04/07/2013 HTN (hypertension) 02/12/2013 jail (current) use of anticoagulants 2012 Resolved Problems Problem Noted Date Diagnosed Date Resolved Date Chronic bronchitis 03/23/2019 2 Positive urine drug screen 04/16/2018 0 06/28/2022 Pulmonary embolus 04/08/2013 04/16/2018 Hypoxia 04/07/2013 04/16/2018 Abdominal aortic aneurysm dissection; chronic 04/07/20 13 04/16/2018 SOB (shortness of breath) 04/07/2013 Encounters Date Type Department Care Team Description 09/02/[address] [address] Provider, Abstract 08/29/[address] [phone] Alex Morales MD Chronic midline low back pain with bilateral sciatica; Intermittent explosive disorder; LOUISE (generalized anxiety disorder); Aortic atherosclerosis; History of aortic dissection; S/P aortic dissection repair; Mixed hyperlipidemia 08/27/2025 External Device Data [facility] ABSTRACTION Provider, Abstract 08/14/2025 [facility] [address] [place] [address] Alex Morales MD Gastroesophageal reflux disease without esophagitis 08/12/2025 Abstract [facility] [address] [place] [address] Provider, Abstract 07/31/[address] [place] [address] Alex Morales MD Chronic obstructive pulmonary disease, unspecified COPD type ([facility]/HCC); Simple chronic bronchitis ([facility]) 07/23/2025 External Device Data ST[facility] ABSTRACTION Provider, Abstract 07/09/2025 External Device Data [facility] ABSTRACTION Provider, Abstract 06/28/[address] [place] [address] Alex Morales MD History of aortic dissection; S/P aortic dissection repair; 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 (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5 ML IM SUSP 09/20/2022,08/23/2022,09/25/2021,2020 INFLUENZA VACCINE QUADRIVALE NT 6 MOS UP CELL DERIVED PF IM 07/16/2019 INFLUENZA VACCINE QUADRIVALE NT 6 MOS UP PF IM 06/22/2023,07/15/2021 INFLUENZA VACCINE TRIVALENT SPLIT VIRUS, (6 MOS UP), 0.5ML (PF), IM 07/25/2024 Influenza Seasonal Unspecifi ed Formulation IM 07/25/2024,08/23/2022,07/24/2022,2019,08/11/2017 Influenza Vaccine Tri Split 4+ Pf Im 08/11/2017 Td(adult) Unspecified Formulation 04/29/2015 Family History Medical History Relation Name Comments Cancer Father Heart Disease Maternal Grandfather Heart Disease Maternal Grandmother Other Mother aneurysm Heart Disease Paternal Grandfather Heart Disease Paternal Grandmother Colon Cancer Neg Hx Relation Name Status Comments Father Maternal Grandfather Maternal Grandmother Mother Paternal Grandfather Paternal Grandmother Social History Tobacco Use Types Packs/Day Years Used Date Smoking Tobacco: Every Day Cigarettes Smokeless Tobacco: Never Tobacco Cessation:Ready to Q uit: No; Counseling Given: Yes Alcohol Use Standard Drinks/Week Comments Yes 4 (1 standard drink = 0.6 oz pur e alcohol) Feeling Safe Answer Date Recorded Are you in a relationship wi th someone who hurts you emotionally and/or physically? 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 Gender Identity Not on file Sexual Orientation Not on file Last Filed Vital Signs Vital Sign Reading Time Taken Comments Blood Pressure 120/68 04/26/2025 1:03 PM CDT Pulse 90 04/26/2025 1:03 PM CDT Temperature 36.2 C (97.2 F) 04/26/2025 1:03 PM CDT Respiratory Rate 20 04/26/2025 1:03 PM CDT Oxygen Saturation 97% 04/26/2025 1:03 PM CDT Inhaled Oxygen Concentration - - Weight 94.8 kg (209 lb) 04/26/2025 1:03 PM CDT Height 167.6 cm (5' 6 ) 04/26/2025 1:03 PM CDT Body Mass Index 33.73 04/26/2025 1:03 PM CDT Plan of Treatment Upcoming Encounters Date Type Department Care Team (Late st Contact Info) Description 10/29/2025 1:00 PM RESOLUTION MANAGER Office Visit [address] [phone] Alex Morales MD [address] [phone] Health Maintenance Due Date Last Done Comments FIT/ DNA Q 3 YEARS (AUTO ORDER) 1980 FIT/FOBT Q 1 YEAR (AUTO ORDER) 1980 FLEX SIG/CT COLONOGRAPHY Q 5 YEARS (AUTO ORDER) 1980 COLORECTAL CANCER SCREENING (AUTO ORDER) 2007 COLORECTAL SCREENING 2007 Colorectal Cancer Screening (AUTO ORDER) 2007 Colorectal Cancer Screening 2007 FIT-DNA Q 3 years 2007 FIT/FOBT Q 1 year 2007 Flex Sig/CT Colonography Q 5 years 2007 RSV VACCINE (60+ or ) (1 - Risk 50-74 years 1-dose series) 2012 ZOSTER VACCINE (1 of 2) 2012 Medicare Advantage ([place]) Preventative Visit/Annual Wellness Visit 10/10/2024 07/25/2024 DTAP/TDAP/TD VACCINES (3 - T d or Tdap) 04/29/2025 04/29/2015, 04/29/2015 INFLUENZA VACCINE (#1) 2025 , 07/25/2024, 06/22/2023, Additional history exists COVID-19 Vaccine (2024-2 6 season) 2025 09/20/2022, 08/23/2022, 08/23/2022, Additional history exists Pre-Diabetes and Diabetes Screening 04/26/2028 04/26/2025, 10/25/2024, 06/15/2023, Additional history exists Abdominal Aortic Aneurysm (A AA) Screening Completed 05/10/2023, 10/01/2019 Medical Devices Implanted Type Area Construction Ironworker Helper Device Identifier Shelf Expiration Date Model / Serial / Lot Sheri Ivc Filter-04/09/2013 Implanted:04/09 by Errol Richardson MD (Quantity not on file) N/A: Vena Cava 03/09/2015 [id number] / / [id number] Procedures Procedure Name Priority Date/Time Associated Diagnosis Comments HEMOGLOBIN A1C Routine 04/26/2025 1:38 PM CDT Prediabetes US ABDOMEN COMPLETE Routine 05/10/2023 Dependent edema Fatty liver from Last 3 Months or Most Recently Relevant to Health Maintenance Results * (ABNORMAL) HEMOGLOBIN A1C (04/26/2025 1:38 PM CDT) HEMOGLOBIN A1C 5.9(H) <5.7 % [facility] Comment: For someone without known diabetes, a hemoglobin A1c value between 5.7% and 6.4% is consistent with prediabetes and should be confirmed with a follow-up test. For someone with known diabetes, a value <7% indicates that their diabetes is well controlled. A1c targets should be individualized based on duration of diabetes, age, comorbid conditions, and other considerations. This assay result is consistent with an increased risk of diabetes. Currently, no consensus exists regarding use of hemoglobin A1c for diagnosis of diabetes for children. ESTIMATED AVERAGE GLUCOSE (MG/DL) 123 mg/dL [facility] ESTIMATED AVERAGE GLUCOSE (MMOL/L) 6.8 mmol/L [facility] Comment: Test Performed at: [facility] [address] [place] [address] Robin Mathew MD Blood 04/26/2025 1:38 PM CDT 04/27/2025 2:12 AM CDT Alex Morales MD CHEMISTRY ORDERABLES [facility] [phone] [facility] [address] [place] [place] [address] * US ABDOMEN COMPLETE (05/10/2023) Anatomical Region Laterality Modality Abdomen Ultrasound us Alex Morales MD US ORDERABLES Final Res ult from Last 3 Months or Most Recently Relevant to Health Maintenance Insurance [place] Member Subscriber Plan / Payer (Ef fective 2021-Present) Name:Jc Alfonso Relation to Subscriber:Self Name:Jc Alfosno Payer ID:Not on file Group ID:Not on file Type:Medicaid Address: [address] MEDICARE O Care Teams Field Collector Relationship Specialty Start Date End Date Alex Morales MD [address] [phone] PCP - General 01/11/21
--- OUTSIDE RECORDS SUMMARY | 2025-09-05 15:38 | XMS_ITS | Encounter Summary ---
Author Organization [facility] Address [address] [place] [address] Care Team Providers Care Instructor Trainer Canine Service Name Role Phone Alex Morales MD Primary Care Provider [phone] Reason for Visit * Reason Comments Med Refill Encounter Details Date Type Department Care Team (Late Contact Info) Description 08/29/[address] [phone] Alex Morales MD [address] [phone] Chronic midline low back pain with bilateral sciatica; Intermittent explosive disorder; LOUISE (generalized anxiety disorder); Aortic atherosclerosis; History of aortic dissection; S/P aortic dissection repair; Mixed hyperlipidemia Social History Tobacco Use Types Packs/Day Years [...] on file 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 Gender Identity Not on file Sexual Orientation Not on file documented as of this encounter Plan of Treatment Upcoming Encounters Date Type Department Care Team (Late Contact Info) Description 10/29/2025 1:00 PM INWARD TOLL OPERATOR Office Visit [address] [phone] Alex Morales MD [address] [phone] documented as of this encounter Visit Diagnoses Diagnosis Chronic midline low back pain with bilateral sciatica Intermittent explosive disorder LOUISE (generalized anxiety disorder) Generalized anxiety disorder Aortic atherosclerosis Atherosclerosis of aorta History of aortic dissection Personal history of other diseases of circulatory system S/P aortic dissection repair Mixed hyperlipidemia documented in this encounter Care Teams Instructor Trainer Canine Service Relationship Specialty Start Date End Date Alex Morales MD [address] [phone] PCP - General 01/11/21 documented as of this encounter
--- NOTE | 2025-09-05 15:56 | P.HP_ITS ---
Providers/Chief Complaint 2 Admitting Physician: Dean Tom Primary Care Provider: Alex Morales Chief Complaint: Cellulitis History of Present Illness Jc Alfonso is a 64 year old male with PMH of HTN (now off meds), HLD, COPD, DVT/PE, RLD, anxiety, polysubstance use (prior illicit drug use including IVDU; current EtOH, marijuana and tobacco use) Patient presents as a transfer from [facility]. He was diagnosed with abdominal wall cellulitis and dental abscess. No general surgery available at OSH. Patient is being transferred to higher level of care for further evaluation and treatment. Patient presents with recurrent abdominal wall abscess. He reports noticing a small lesion on his abdomen 4-5 days ago that began leaking bloody/serous fluid. He denies purulent drainage or foul odor. Patient states he has had similar abscesses in the same location previously, with 1 that healed up once but did not go all the way away. He denies fever, chills, or other systemic symptoms. No known history of MRSA. He reports the area becomes firm, red, and sometimes purple when it flares up. Patient has been administering Lovenox injections near the site for underlying history of thrombosis. Records from [facility] reviewed VSS. SBP 130-150s Labs 09/05/2025 1003 Hemogram WBC 8.8 RBC 4.38 PLT 208 HGB 12.8 HCT 38.8 Chemistry Na 137 K 3.8 Cl 103 Ca 8.9 Glu CO2 26 AG 12 BUN 11 Cr 0.8 eGFR 98 AST 22 ALT 23 ALP 93 T.Bili 0.6 Alb 4.1 T.Protein 7.4 Amylase 51 Lipase 49 Urinalysis Not indicative of infectious findings Blood Cx (x2) and wound culture collected, results pending CT Abdomen-Pelvis w/ contrast 09/05/25 - Bibasilar atelectasis - Stable appearance of simple and complex appearing renal cyst - No urinary or bowel obstruction and normal appendix - Per fascicular stranding. Cystitis not excluded. - Patent aortobifemoral bypass - Inflammatory change of the anterior abdominal wall. There is skin thickening and subcutaneous edema likely due to cellulitis. Small thick-walled fluid collection within the left anterior abdominal subcutaneous fat may represent a small abscess. 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 - Fat-containing umbilical hernia At OSH received a dose of vancomycin and zosyn. Review of Systems 2 General: Reports: 10 or more systems reviewed and unremarkable except in HPI and below Medications/Allergies Home Medications ?Medication ?Instructions ?Recorded ?Confirmed ?Last Taken ?Type albuterol 90 mcg/actuation aerosol 90 mcg inhalation Q 4H PRN 06/14/23 09/05/25 09/05/25 History inhaler Shortness Of Breath atorvastatin 40 mg tablet 40 mg PO DAILY 06/14/2308/11 Unknown History budesonide-formoterol HFA 160 2 puff inhalation BID 08/30/24 Unknown History mcg-4.5 mcg/actuation aerosol inhaler (Symbicort) buspirone 10 mg tablet 10 mg PO BID 06/14/23 Unknown History enoxaparin 80 mg/0.8 mL 80 mg SUBCUT Q12H 06/14/23 1 11/05/24 09/04/25 History subcutaneous syringe Held on 06/16/23. Instructions: Resume on 06/30/23. famotidine 40 mg tablet 40 mg PO BID 06/14/23 Unknown History gabapentin 300 mg capsule 600 mg PO TID 06/14/2309/05 Unknown History risperidone 1 mg tablet 1 mg PO BID 06/14/23 5 Unknown History tiotropium bromide 18 mcg capsule 18 mcg inhalation DA RORY 06/14/23 09/05/25 Unknown History with inhalation device (Spiriva with HandiHaler) albuterol sulfate 90 mcg/actuation puff inhalation Q4H PRN Shortness 09/05/25 Unknown History aerosol inhaler Of Breath Or Wheezing baclofen 10 mg tablet mg 09/05/25 Unknown History Allergies Allergy/AdvReac Type Severity Reaction Status Date / Time No Known Allergies Allergy Verified 08/30/24 08:09 PFSH Acute 2 PFSH: Medical History (Updated 09/05/25 @ 16:19 by Junito Alonso NP) Presence of IVC filter Alcohol dependence Amphetamine abuse Aortic dissection, thoracic Arteriopathy, cervical, 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 Unkept appearance. Appears older than stated age. Neuro: AOx3. No unilateral weakness or facial asymmetry. No speech decificts. Head: NC/AT Eyes: PERRLA, EOMI Ears: Normal external ears. Hearing intact to normal voice. Nose: Normal external nose. No epistaxis. Throat: MMM Respiratory: Expiratory wheeze lower bases posteriorly. No accessory muscle use or increased work of breathing. On room air. Cardiovascular: Regular. No murmur. Extremities: No edema bilaterally Gastrointestinal: Soft. Moderately distended. +BS Umbilical hernia present, reducible. Left to the umbilical hernia open lesion draining serosanguineous fluid with surrounding edema, erythema and induration. Genitourinary: No plaza catheter Musculoskeletal: Moves all extremities. Strength 5/5 bilaterally (upper and lower) Skin: abdominal lesion (see GI section) Data 09/05/25 17:10 09/05/25 17:10 Other Labs: Labs from [facility] reviewed Labs 09/05/2025 1003 Hemogram WBC 8.8 RBC 4.38 PLT 208 HGB 12.8 HCT 38.8 Chemistry Na 137 K 3.8 Cl 103 Ca 8.9 Glu CO2 26 AG 12 BUN 11 Cr 0.8 eGFR 98 AST 22 ALT 23 ALP 93 T.Bili 0.6 Alb 4.1 T.Protein 7.4 Amylase 51 Lipase 49 Urinalysis Not indicative of infectious findings Micro: 09/05/2025 blood cultures x2 collected at OSH, results pending CT Abd/Pel: Radiologist's impression: CT Abdomen-Pelvis w/ contrast 09/05/25 from outside hospital reviewed * Bibasilar atelectasis * Stable appearance of simple and complex appearing renal cyst * No urinary or bowel obstruction and normal appendix * Per fascicular stranding. Cystitis not excluded. * Patent aortobifemoral bypass * Inflammatory change of the anterior abdominal wall. There is skin thickening and subcutaneous edema likely due to cellulitis. Small thick-walled fluid collection within the left anterior abdominal subcutaneous fat may represent a small abscess. 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 * Fat-containing umbilical hernia A&P Assessment and plan 1. Abdominal wall abscess: 2. Abdominal wall cellulitis: 3. Chronic thrombosis of inferior vena cava: 4. COPD without exacerbation: Plan: # Abdominal wall abscess # Abdominal wall cellulitis - Baseline labs: CBC, CMP, blood cultures, ESR, CRP - Continue abx: vancomycin and zosyn - General surgery consulted Seen by Dr. Rico, no surgical intervention at this time # Chronic thrombosis of inferior vena cava # Hx of thrombosis (prior DVT/PE x2) - HANDKERCHIEF SAMPLE CLERK on lovenox 80 mg BID, continue # COPD w/o acute exacerbation At home take albuterol inhaler Q4H. Does not think he takes symbicort. - Respiratory to assess and treat - DuoNebs Q6H scheduled # GERD - HANDKERCHIEF SAMPLE CLERK on famotidine 40 mg BID, HOLD, hospital non-formulary start on protonix 40 mg daily while inpatient # HLD - HANDKERCHIEF SAMPLE CLERK on atorvastatin 40 mg at bedtime, continue # Chronic back pain - HANDKERCHIEF SAMPLE CLERK meds gabapentin 600 mg TID, continue baclofen 10 mg Q8H prn, HOLD # RLS - risperidone 1 mg BID, continue # Generalized anxiety - HANDKERCHIEF SAMPLE CLERK on buspirone 10 mg BID, continue VTE PPx: SCDs, home lovenox resumed PDMP PDMP Reviewed: Not Reviewed Attestations 2 Medical Necessity Statement*: Admitted under inpatient status. Given complexity of patient's presentation, co-morbid conditions, and required intensity of treatment, a hospitalization exceeding two midnights is anticipated. Coding Level of Care Code 23630 Diagnoses Abdominal wall abscess Abdominal wall cellulitis L03.311 Chronic thrombosis of inferior vena cava I82.221 COPD without exacerbation J44.9
[2025-09-05 16:00] VITALS: BP 182/77; PULSE 90; RESP 18; TEMP 36.3; O2SAT 96
--- NOTE | 2025-09-05 17:05 | P.PHAVANC_ITS ---
Vancomycin Goal - Goal Vancomycin Indication:: SSTI - Therapy Current therapy:: Pip/Tazo Day of therpy:: Day []of [] . Actual body weight (kg): 201 lb 4 oz - Data Last dialysis session:: N/A Drug administration history:: PATIENT TRANSFERRED FROM [facility] Labs from [facility] reviewed Labs 09/05/2025 1003 Hemogram WBC 8.8 RBC 4.38 PLT 208 HGB 12.8 HCT 38.8 Chemistry Na 137 K 3.8 Cl 103 Ca 8.9 Glu CO2 26 AG 12 BUN 11 Cr 0.8 eGFR 98 AST 22 ALT 23 ALP 93 T.Bili 0.6 Alb 4.1 T.Protein 7.4 Amylase 51 Lipase 49 Urinalysis Not indicative of infectious findings Micro: 09/05/2025 blood cultures x2 collected at OSH, results pending PATIENT LAST RECEIVED VANCOMYCIN 1G LOADING DOSE AT [facility] 09/05/25 AT 1050, PATIENT RECEIVED ZOSYN 3.375 ON 09/05/25 AT 1322. CRCL CALCULATED TO 123.6 ML/MIN USING [facility] LAB VALUES. LABS HAVE BEEN ORDERED FOR HIS ADMISSION AT [facility]. AWAITING RESULTS BEFORE FINALIZING MAINTENANCE DOSE. Treatment plan:: new consult
[2025-09-05 17:19] LABS: Hematocrit 39.0 % (37-53); Hemoglobin 12.80 g/dL (11.27-16.99); Mean Corpuscular HGB Conc 32.8 g/dL (30-55); Mean Corpuscular Hemoglobin 28.8 pg (27-33); Mean Corpuscular Volume 87.6 fl (82-101); Nucleated Red Blood Cells % 0 %; Platelet Count 199 10^3/cmm (157-399); Red Blood Count 4.45 10^6/uL (3.85-5.65); White Blood Count 8.28 10^3/uL (3.29-11.43)
[2025-09-05 17:41] LABS: Alanine Aminotransferase 19 U/L (0-41); Albumin Level 3.7 g/dL (3.5-5.2); Alkaline Phosphatase 98 U/L (40-130); Anion Gap 14.8 (5-19); Aspartate Amino Transferase 18 U/L (0-40); Blood Urea Nitrogen 9 mg/dL (8-23); Calcium 8.8 mg/dL (8.5-10.5); Carbon Dioxide 25 mmol/L (22-29); Chloride 103 mmol/L (98-107); Globulin 3.2 g/dL (1.3-4.6); Glucose 109 mg/dL (65-115); Osmolality Calculated 287 mOsm/kg (285-295); Potassium 3.8 mmol/L (3.5-5.1); Sodium 139 mmol/L (136-145); Total Protein 6.9 g/dL (6.6-8.7)
[2025-09-05 17:42] LABS: Lactic Sepsis W/Reflex 0.9 mmol/L (0.5-2.2)
[2025-09-05 19:22] VITALS: RESP 18; O2SAT 96
[2025-09-05 19:32] VITALS: BP 134/72; PULSE 80; RESP 18; TEMP 36.8; O2SAT 97
[2025-09-05] MEDS: piperacillin-tazobactam 3.375 GM in sodium chloride 0.9% (plus) 50 ML IV (20:46)
[2025-09-05 23:46] VITALS: BP 138/76; PULSE 72; RESP 16; TEMP 36.8; O2SAT 98
[2025-09-06] VITALS (11 sets, daily range): BP systolic 121–187; BP diastolic 71–85; PULSE 68–89; RESP 16–18; TEMP 36.4–36.8; O2SAT 92–100
[2025-09-06 05:08] LABS: Hematocrit 36.2 % (37-53); Hemoglobin 11.60 g/dL (11.27-16.99); Mean Corpuscular HGB Conc 32.0 g/dL (30-55); Mean Corpuscular Hemoglobin 28.9 pg (27-33); Mean Corpuscular Volume 90.0 fl (82-101); Nucleated Red Blood Cells % 0 %; Platelet Count 193 10^3/cmm (157-399); Red Blood Count 4.02 10^6/uL (3.85-5.65); White Blood Count 7.95 10^3/uL (3.29-11.43)
[2025-09-06] MEDS: piperacillin-tazobactam 3.375 GM in sodium chloride 0.9% (plus) 50 ML IV ×3 (05:13→21:29)
[2025-09-06 05:28] LABS: Anion Gap 11.8 (5-19); Blood Urea Nitrogen 8 mg/dL (8-23); Calcium 8.7 mg/dL (8.5-10.5); Carbon Dioxide 25 mmol/L (22-29); Chloride 106 mmol/L (98-107); Glucose 122 mg/dL (65-115); Osmolality Calculated 288 mOsm/kg (285-295); Potassium 3.8 mmol/L (3.5-5.1); Sodium 139 mmol/L (136-145)
--- NOTE | 2025-09-06 07:48 | P.TS_ITS ---
Transfer Summary Providers Date of Admission: 09/05/25 15:36 Date of Discharge/Transfer: 09/06/25 Attending Provider at Admission: Dean Tom Attending Provider at Transfer: SIRI Iniguez, METALLURGICAL ENGINEER Primary Care Provider: Alex Morales Transfer Plans: Anticipated date of transfer: 09/06/25 . Diagnoses at Discharge Discharge Diagnosis 1. Abdominal wall cellulitis: Reason for Visit Reason for Visit Cellulitis TS Data Studies Completed and Pending Pending at discharge Category Date Time Status Blood Culture Stat Lab 09/05/25 17:12 Results C Reactive Protein Routine Lab 09/06/25 07:44 Ordered Vancomycin Trough Timed Lab 09/06/25 18:00 Ordered Wound Culture and Gram Stain Routine Lab 09/05/25 17:55 Received Laboratory Last Values WBC 7.95 10^3/uL (3.29-11.43) 09/06/25 04:19 RBC 4.02 10^6/uL (3.85-5.65) 09/06/25 04:19 Hgb 11.60 g/dL (11.27-16.99) 09/06/25 04:19 Hct 36.2 % (37-53) L 09/06/25 04:19 MCV 90.0 fl (82-101) 09/06/25 04:19 MCH 28.9 pg (27-33) 09/06/25 04:19 MCHC 32.0 g/dL (30-55) 09/06/25 04:19 RDW 14.6 % (12.1-15.1) 09/06/25 04:19 Plt Count 193 10^3/cmm (157-399) 09/06/25 04:19 MPV 9.4 fL (7.4-10.4) 09/06/25 04:19 Neut % (Auto) 66.9 % 09/06/25 04:19 Lymph % (Auto) 19.5 % 09/06/25 04:19 Sutton % (Auto) 10.1 % 09/06/25 04:19 Eos % (Auto) 2.1 % 09/06/25 04:19 Baso % (Auto) 1.0 % 09/06/25 04:19 Neut # (Auto) 5.32 10^3/uL (1.8-7.7) 09/06/25 04:19 Lymph # (Auto) 1.6 10^3/uL (0.8-4.8) 09/06/25 04:19 Sutton # (Auto) 0.8 10^3/uL (0.2-0.9) 09/06/25 04:19 Eos # (Auto) 0.2 10^3/uL (0.0-0.8) 09/06/25 04:19 Baso # (Auto) 0.1 10^3/uL (0.0-0.1) 09/06/25 04:19 Nucleated RBC % (auto) 0 % 09/06/25 04:19 Nucleated RBCs # 0.0 /100WBC 09/06/25 04:19 ESR 31 mm/hr (0-10) H 09/05/25 17:10 Sodium 139 mmol/L (136-145) 09/06/25 04:19 Potassium 3.8 mmol/L (3.5-5.1) 09/06/25 04:19 Chloride 106 mmol/L (98-107) 09/06/25 04:19 Carbon Dioxide 25 mmol/L (22-29) 09/06/25 04:19 Anion Gap 11.8 (5-19) 09/06/25 04:19 BUN 8 mg/dL (8-23) 09/06/25 04:19 Creatinine 0.7 mg/dL (0.7-1.2) 09/06/25 04:19 GFR Calculation 114.3 mL/min (90-130) 09/06/25 04:19 Glucose 122 mg/dL (65-115) H 09/06/25 04:19 Calculated Osmolality 288 mOsm/kg (285-295) 09/06/25 04:19 Lactic Acid 0.9 mmol/L (0.5-2.2) 09/05/25 17:10 Calcium 8.7 mg/dL (8.5-10.5) 09/06/25 04:19 Total Bilirubin 0.5 mg/dL (0.15-1.2) 09/05/25 17:10 AST 18 U/L (0-40) 09/05/25 17:10 ALT 19 U/L (0-41) 09/05/25 17:10 Alkaline Phosphatase 98 U/L (40-130) 09/05/25 17:10 C-Reactive Protein 75.5 mg/L (0.0-4.9) H 09/05/25 17:10 Total Protein 6.9 g/dL (6.6-8.7) 09/05/25 17:10 Albumin 3.7 g/dL (3.5-5.2) 09/05/25 17:10 Globulin 3.2 g/dL (1.3-4.6) 09/05/25 17:10 Recent Clincial Data Last Vital Signs Temp 97.8 F 09/06/25 07:10 Pulse 79 09/06/25 07:10 Resp 17 09/06/25 07:10 BP 144/85 09/06/25 07:10 Pulse Ox 98 09/06/25 07:10 O2 Del Method Nasal Cannula 09/06/25 07:10 O2 Flow Rate 2 09/06/25 07:10 Vital Signs Temp Pulse Resp BP Pulse Ox O2 Del Method O2 Flow Rate 09/06/25 07:10 97.8 F 79 17 144/85 98 Nasal Cannula 2 09/06/25 03:27 98.3 F 68 16 140/77 96 Nasal Cannula 09/06/25 02:20 18 97 Nasal Cannula 2 09/06/25 02:00 16 98 Nasal Cannula 2 09/05/25 23:46 98.3 F 72 16 138/76 98 Nasal Cannula Intake & Output/Weight 09/04/25 09/05/25 09/06/25 09/07/25 06:59 06:59 06:59 06:59 Intake Total 670 / 670 Balance 670 / 670 Weight 91.739 kg Vitals Last Vital Signs Temp 97.8 F 09/06/25 07:10 Pulse 79 09/06/25 07:10 Resp 17 09/06/25 07:10 BP 144/85 09/06/25 07:10 Pulse Ox 98 09/06/25 07:10 O2 Del Method Nasal Cannula 09/06/25 07:10 O2 Flow Rate 2 09/06/25 07:10 TS Medications Medications Acetaminophen (Acetaminophen 325 Mg Tablet) 650 mg PO Q8H PRN PRN Reason: Mild/Mod Pain Or Temp >/= 101 Albuterol/Ipratropium (Ipratropium-Albuterol 3 Ml Neb) 3 ml INHALATION Q6H.RESP COCO Last Admin: 09/06/25 02:14 Dose: 3 ml Atorvastatin Calcium (Atorvastatin 40 Mg Tablet) 40 mg PO DAILY [facility] Last Admin: 09/06/25 05:12 Dose: 40 mg Buspirone HCl (Buspirone 10 Mg Tablet) 10 mg PO BID [facility] Last Admin: 09/06/25 05:12 Dose: 10 mg Enoxaparin Sodium (Enoxaparin 100 Mg/Ml Syringe) 90 mg SUBCUT Q12H [facility] Last Admin: 09/06/25 05:12 Dose: 90 mg Gabapentin (Gabapentin 300 Mg Capsule) 600 mg PO TID [facility] Last Admin: 09/06/25 05:12 Dose: 600 mg Piperacillin Sod/Tazobactam (Sod 3.375 gm/ Sodium Chloride) 50 mls @ 12.5 mls/hr IV Q8H [facility]; Protocol Last Admin: 09/06/25 05:13 Dose: 12.5 mls/hr Vancomycin HCl 1,000 mg/ (Sodium Chloride) 250 mls @ 250 mls/hr IV Q8H [facility] Last Infusion: 09/06/25 03:41 Dose: Infused Nicotine (Nicotine 14 Mg Patch) 1 patch TRANSDERMA DAILY PRN PRN Reason: NICOTINE CRAVINGS Last Admin: 09/05/25 22:39 Dose: 1 patch Pantoprazole Sodium (Pantoprazole Dr 40 Mg Tablet) 40 mg PO DAILY [facility] Last Admin: 09/06/25 05:11 Dose: 40 mg Risperidone (Risperidone 1 Mg Tablet) 1 mg PO BID [facility] Last Admin: 09/05/25 17:28 Dose: 1 mg Senna (Sennosides 8.6 Mg Tablet) 17.2 mg PO BEDTIME PRN PRN Reason: CONSTIPATION Discontinued Medications Piperacillin Sod/Tazobactam (Sod 3.375 gm/ Sodium Chloride) 50 mls @ 12.5 mls/hr IV Q8H [facility]; Protocol Last Admin: 09/05/25 17:07 Dose: Not Given Allergies No Known Allergies Allergy (Verified 08/30/24 08:09) Home Medications albuterol 90 mcg/actuation aerosol inhaler 90 mcg inhalation Q4H PRN Shortness Of Breath 06/14/23 [History Confirmed 09/05/25] atorvastatin 40 mg tablet 40 mg PO DAILY 06/14/23 [History Confirmed 09/05/25] budesonide-formoterol HFA 160 mcg-4.5 mcg/actuation aerosol inhaler (Symbicort) 2 puff inhalation BID 06/14/23 [History Confirmed 08/30/24] buspirone 10 mg tablet 10 mg PO BID 06/14/23 [History Confirmed 09/05/25] enoxaparin 80 mg/0.8 mL subcutaneous syringe 80 mg SUBCUT Q12H 06/14/23 [History Confirmed 09/05/25] Held on 06/16/23. Instructions: Resume on 06/30/23. famotidine 40 mg tablet 40 mg PO BID 06/14/23 [History Confirmed 09/05/25] gabapentin 300 mg capsule 600 mg PO TID 06/14/23 [History Confirmed 09/05/25] risperidone 1 mg tablet 1 mg PO BID 06/14/23 [History Confirmed 09/05/25] tiotropium bromide 18 mcg capsule with inhalation device (Spiriva with HandiHaler) 18 mcg inhalation DAILY 06/14/23 [History Confirmed 09/05/25] albuterol sulfate 90 mcg/actuation aerosol inhaler puff inhalation Q4H PRN Shortness Of Breath Or Wheezing 09/05/25 [History] baclofen 10 mg tablet mg 09/05/25 [History] Discharge Plan Discharge Patient Disposition: Home Condition: Stable Prescriptions: No Action albuterol 90 mcg/actuation Aerosol 90 mcg INHALATION Q4H PRN (Reason: Shortness Of Breath) atorvastatin 40 mg tablet 40 mg PO DAILY risperidone 1 mg tablet 1 mg PO BID buspirone 10 mg tablet 10 mg PO BID enoxaparin 80 mg/0.8 mL syringe 80 mg SUBCUT Q12H famotidine 40 mg tablet 40 mg PO BID tiotropium bromide [Spiriva with HandiHaler] 18 mcg capsule, w/inhalation device 18 mcg INHALATION DAILY budesonide-formoterol [Symbicort] 160-4.5 mcg/actuation HFA aerosol inhaler 2 puff INHALATION BID Rx Instructions: pt states he no longer takes gabapentin 300 mg capsule 600 mg PO TID baclofen 10 mg tablet albuterol sulfate 90 mcg/actuation HFA aerosol inhaler INHALATION Q4H PRN (Reason: Shortness Of Breath Or Wheezing) Patient Instructions: Opioid Safety, Patient Portal & Clint Instructions Transfer Attestations Status at Transfer: Cognitive status at transfer: cognitively intact ; Behavioral status at transfer: cooperative ; Coding Level of Care Code Acute Code for Chg Fwd Diagnoses Abdominal wall cellulitis L03.311
--- NOTE | 2025-09-06 07:49 | P.PN_ITS ---
Subjective 2 Subjective: Jc Alfonso is a 64 year old male with PMH of HTN (now off meds), HLD, COPD, DVT/PE, IVC filter, RLD, anxiety, polysubstance use (prior illicit drug use including IVDU; current EtOH, marijuana and tobacco use) Patient presents as a transfer from [facility]. He was diagnosed with abdominal wall cellulitis and dental abscess. No general surgery available at OSH. Patient is being transferred to higher level of care for further evaluation and treatment. Patient presents with recurrent abdominal wall abscess. He reports noticing a small lesion on his abdomen 4-5 days ago that began leaking bloody/serous fluid. He denies purulent drainage or foul odor. Patient states he has had similar abscesses in the same location previously, with 1 that healed up once but did not go all the way away. He denies fever, chills, or other systemic symptoms. No known history of MRSA. He reports the area becomes firm, red, and sometimes purple when it flares up. Patient has been administering Lovenox injections near the site for underlying history of thrombosis. 09/06/25 General surgery consulted, Dr. Rico, no surgical intervention at this time. Vancomycin and zosyn given at OSH ? continue. Planning for 48 hours of IV antibiotics and then discharge with adjustment to PO. Dressing changed at bedside. Patient educated on subcutaneous site rotation. Vitals/I&O/Wt Last Vital Signs Temp 97.8 F 09/06/25 07:10 Pulse 79 09/06/25 07:10 Resp 17 09/06/25 07:10 BP 144/85 09/06/25 07:10 Pulse Ox 98 09/06/25 07:10 O2 Del Method Nasal Cannula 09/06/25 07:10 O2 Flow Rate 2 09/06/25 07:10 09/05/25 09/06/25 09/06/25 22:59 06:59 14:59 Intake Total 370 / 370 300 / 670 Balance 370 / 370 300 / 670 Weight last 48 hrs Weight 91.739 kg Weight 91.285 kg Physical Exam 2 Const: OTHER: Appears older than stated age Eye: OTHER: PERRLA, EOMI Resp: OTHER: No accessory muscle use or increased work of breathing. On room air. Cardio: OTHER: Regular rate and rhythm GI: OTHER: Umbilical hernia present, reducible. Left to the umbilical hernia open lesion draining serosanguineous fluid with surrounding edema, erythema and induration. Neuro: OTHER: No unilateral weakness or facial asymmetry. No speech decificts Skin: OTHER: Left abdominal lesion, diffuse lower abdominal bruising Data 09/06/25 04:19 09/06/25 04:19 Micro: Microbiology 09/05/25 17:12 Blood Culture - Preliminary Blood SPECIMEN COLLECTED 09/05/25 17:10 Blood Culture - Preliminary Blood SPECIMEN COLLECTED A&P Assessment and plan 1. Abdominal wall cellulitis: Cellulitis and abscess Recurrent ? noticed recurrent lesion on this episode approximately 08/31/25 CT abdomen pelvis; cystitis not excluded, inflammatory change of the anterior abdominal wall, skin thickening and subcutaneous edema likely due to cellulitis, small thick-walled fluid collection within the left anterior abdominal subcutaneous fat may represent a small abscess, chronic occlusion of the inferior vena cava with inferior vena cava filter in place, fat-containing umbilical hernia, see full results CBC, CMP, blood cultures, ESR CRP 75 General surgery consulted, Dr. Rico, no surgical intervention at this time vancomycin and zosyn given at OSH ? continue Planning for 48 hours of IV antibiotics and then discharge with adjustment to PO 2. Abdominal wall abscess: See treatment for cellulitis as above 3. 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 COPD without exacerbation: CT abdomen pelvis; Bibasilar atelectasis, see full results Continue home albuterol RT assessment and treatment Duonebs q6h 5. GERD (gastroesophageal reflux disease): On home famotidine ? hold Continue Protonix 40 mg IV 6. Anxiety: Continue home buspirone 10 mg BID 7. HLD (hyperlipidemia): Continue home atorvastatin 40 mg at bedtime 8. Chronic back pain: Continue home gabapentin 600 mg TID On home baclofen 10 mg Q8H prn - hold 9. RLS (restless legs syndrome): Risperidone 1 mg BID, continue PDMP PDMP Reviewed: Not Reviewed Attestations 2 Medical Necessity Statement*: Admitted under inpatient status. Given complexity of patient's presentation, co-morbid conditions, and required intensity of treatment, a hospitalization exceeding two midnights expected s/t 48 hours of antibiotics. Planning for discharge tomorrow with PO antibiotics. Diagnoses Abdominal wall cellulitis L03.311 Abdominal wall abscess Chronic thrombosis of inferior vena cava I82.221 COPD without exacerbation J44.9 GERD (gastroesophageal reflux disease) K21.9 Anxiety F41.9 HLD (hyperlipidemia) E78.5 Chronic back pain M54.9; G89.29 RLS (restless legs syndrome) G25.81 Time Spent (min) 70
--- NOTE | 2025-09-06 08:43 | P.PN_ITS ---
Subjective 2 Subjective: No acute events overnight No abdominal abscess to drain Vitals/I&O/Wt Last Vital Signs Temp 97.8 F 09/06/25 07:10 Pulse 79 09/06/25 07:10 Resp 17 09/06/25 07:10 BP 144/85 09/06/25 07:10 Pulse Ox 98 09/06/25 07:10 O2 Del Method Nasal Cannula 09/06/25 07:10 O2 Flow Rate 2 09/06/25 07:10 09/05/25 09/06/25 09/06/25 22:59 06:59 14:59 Intake Total 370 / 370 300 / 670 Balance 370 / 370 300 / 670 Weight last 48 hrs Weight 202 lb 4 oz Weight 201 lb 4 oz Physical Exam 2 Narrative: Chest: Unlabored breathing room air. No lymphadenopathy. Heart: Regular rate and rhythm. Abdomen: Soft, nontender, nondistended. No masses or lymphadenopathy. Cellulitis improved. No fluctuance Data 09/07/25 09:25 09/07/25 09:25 Micro: Microbiology 09/05/25 17:12 Blood Culture - Preliminary Blood SPECIMEN COLLECTED 09/05/25 17:10 Blood Culture - Preliminary Blood SPECIMEN COLLECTED A&P Assessment and plan 1. Abdominal wall cellulitis: Plan: 64-year-old male with abdominal wall cellulitis. No indication for surgery given absence of fluctuance. Recommend continuing antibiotics. Recommend transitioning to oral anticoagulation if possible. Rest of care per hospitalist. PDMP PDMP Reviewed: Not Reviewed Attestations 2 Medical Necessity Statement*: N/A Coding Level of Care Code 07488 Diagnoses Abdominal wall cellulitis L03.311
--- OUTSIDE RECORDS SUMMARY | 2025-09-06 09:02 | XMS_ITS | Encounter Summary ---
Author Organization [facility] Address [address] [place] [address] Care Team Providers Care Commercial Floor Covering Installer Name Role Phone Alex Morales MD Primary Care Provider [phone] Encounter Details Date Type Department Care Team (Late Contact Info) Description 09/02/2025 Abstract [facility] [address] [address] Provider, Abstract NO ADDRESS ON [...] on file Legal Sex Male 8:19 AM [employer] Gender Identity Not on file Sexual Orientation Not on file documented as of this encounter Plan of Treatment Upcoming Encounters Date Type Department Care Team (Late Contact Info) Description 10/29/2025 1:00 PM [employer] Office Visit [facility] [address] [address] Alex Morales MD [address] [address] documented as of this encounter Visit Diagnoses Not on filedocumented in this encounter Care Teams Commercial Floor Covering Installer Relationship Specialty Start Date End Date Alex Morales MD [address] [address] PCP - General 01/11/21 documented as of this encounter
--- OUTSIDE RECORDS SUMMARY | 2025-09-06 09:02 | XMS_ITS | Clinical Summary ---
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 n 01/22/2021 [...] 04/16/2018 Tobacco use 04/07/2013 HTN (hypertension) 02/12/2013 prison (current) use of anticoagulants 2012 Resolved Problems Problem Noted Date Diagnosed Date Resolved Date Chronic bronchitis 03/23/2019 2 Positive urine drug screen 04/16/2018 0 06/28/2022 Pulmonary embolus 04/08/2013 04/16/2018 Hypoxia 04/07/2013 04/16/2018 Abdominal aortic aneurysm dissection; chronic 04/07/20 13 04/16/2018 SOB (shortness of breath) 04/07/2013 Encounters Date Type Department Care Team Description 09/02/[address] [address] Provider, Abstract 08/29/[address] [phone] Alex Morales MD Chronic midline low back pain with bilateral sciatica; Intermittent explosive disorder; LOUISE (generalized anxiety disorder); Aortic atherosclerosis; History of aortic dissection; S/P aortic dissection repair; Mixed hyperlipidemia 08/27/2025 External Device Data STL ABSTRACTION Provider, Abstract 08/14/2025 [facility] [address] [place] [address] Alex Morales MD Gastroesophageal reflux disease without esophagitis 08/12/2025 Abstract [facility] [address] [place] [address] Provider, Abstract 07/31/[address] [place] [address] Alex Morales MD Chronic obstructive pulmonary disease, unspecified COPD type ([facility]/HCC); Simple chronic bronchitis ([facility]) 07/23/2025 External Device Data STL ABSTRACTION Provider, Abstract 07/09/2025 External Device Data STL ABSTRACTION Provider, Abstract 06/28/[address] [place] [address] Alex Morales MD History of aortic dissection; S/P aortic dissection repair; 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 of anticoagulants; Hypercoagulable state; Personal [...] on file Legal Sex Male 8: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 Gender Identity Not on file Sexual Orientation [...] st Contact Info) Description 10/29/2025 1:00 PM MEDIA RECONCILIATION SPECIALIST Office Visit [address] [address] Alex Morales MD [address] [phone] Health Maintenance Due Date Last Done Comments [...] VACCINE (1 of 2) 2012 [place] Preventative Visit/Annual Wellness Visit 10/10/2024 07/25/2024 DTAP/TDAP/TD [...] 05/10/2023, 10/01/2019 Medical Devices Implanted Type Area Principal Bioinformatics Specialist Device Identifier Shelf Expiration Date Model / Serial / Lot Sheri Ivc Filter-04/09/2013 Implanted:04/09 by Errol Richardson MD (Quantity not on file) N/A: Vena Cava 03/09/2015 [id number] / / [id number] Procedures Procedure Name Priority Date/Time Associated Diagnosis [...] children. ESTIMATED AVERAGE GLUCOSE (MG/DL) 123 mg/dL [facility] ESTIMATED AVERAGE GLUCOSE (MMOL/L) 6.8 mmol/L [facility] Comment: Test Performed at: [facility] [address] [place] [address] Robin Mathew MD Blood 04/26/2025 1:38 PM CDT 04/27/2025 2:12 AM CDT Alex Morales MD CHEMISTRY ORDERABLES Madonna l Result [facility] [phone] [facility] [address] [facility] [place] [address] * US ABDOMEN COMPLETE (05/10/2023) Anatomical Region Laterality Modality Abdomen Ultrasound us Alex Morales MD US ORDERABLES Final Res ult from Last 3 Months or Most Recently Relevant to Health Maintenance Insurance [place] Member Subscriber Plan / Payer (Ef fective 2021-Present) Name:Jc Alfonso Relation to Subscriber:Self Name:Jc Alfonso Payer ID:Not on file Group ID:Not on file Type:Medicaid Address: [address] MEDICARE O Care Teams Records Supervisor Relationship Specialty Start Date End Date Alex Morales MD [address] [phone] PCP - General 01/11/21
[2025-09-07] VITALS (8 sets, daily range): BP systolic 134–149; BP diastolic 73–81; PULSE 77–84; RESP 16–19; TEMP 36.4–36.7; O2SAT 97–100
[2025-09-07] MEDS: piperacillin-tazobactam 3.375 GM in sodium chloride 0.9% (plus) 50 ML IV (04:37)
[2025-09-07 09:40] LABS: Hematocrit 38.0 % (37-53); Hemoglobin 12.60 g/dL (11.27-16.99); Mean Corpuscular HGB Conc 33.2 g/dL (30-55); Mean Corpuscular Hemoglobin 29.6 pg (27-33); Mean Corpuscular Volume 89.2 fl (82-101); Nucleated Red Blood Cells % 0 %; Platelet Count 217 10^3/cmm (157-399); Red Blood Count 4.26 10^6/uL (3.85-5.65); White Blood Count 8.14 10^3/uL (3.29-11.43)
[2025-09-07 10:03] LABS: Alanine Aminotransferase 17 U/L (0-41); Albumin Level 3.5 g/dL (3.5-5.2); Alkaline Phosphatase 95 U/L (40-130); Anion Gap 14.7 (5-19); Aspartate Amino Transferase 15 U/L (0-40); Blood Urea Nitrogen 6 mg/dL (8-23); Calcium 8.7 mg/dL (8.5-10.5); Carbon Dioxide 23 mmol/L (22-29); Chloride 104 mmol/L (98-107); Globulin 3.2 g/dL (1.3-4.6); Glucose 138 mg/dL (65-115); Osmolality Calculated 286 mOsm/kg (285-295); Potassium 3.7 mmol/L (3.5-5.1); Sodium 138 mmol/L (136-145); Total Protein 6.7 g/dL (6.6-8.7)
--- NOTE | 2025-09-07 11:18 | P.DS_ITS ---
Discharge Providers Date of Admission: 09/05/25 15:36 Date of Discharge: September 07, 2025 Attending Provider at Admission: Dean Tom Attending Provider at Discharge: Bharat Govea MD Primary Care Provider: Alex Morales Diagnoses at Discharge Discharge Diagnosis 1. Abdominal wall cellulitis: 2. Abdominal wall abscess: 3. Chronic thrombosis of inferior vena cava: 4. COPD without exacerbation: 5. GERD (gastroesophageal reflux disease): 6. Anxiety: 7. HLD (hyperlipidemia): 8. Chronic back pain: 9. 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, who presents to [facility] for abdominal wall cellulitis, abscess Patient was admitted to [facility] for abdominal wall cellulitis, with concerns for possible abscess - CT scan of the abdomen pelvis shows small thick-walled fluid collection within the anterior abdominal subcutaneous fat that may represent a small abscess - General Surgery consulted, recommended medical management IV antibiotics, wound care - Patient was managed with IV antibiotics, wound care - Overall clinically improving - On examination on 09/07/2025 no palpable abscess, no active purulent drainage, no tenderness area of erythema/tenderness significantly proved - Will discharge on p.o. 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 seen on CT scan, no abdominal pain complaints, follow-up with primary care provider for consideration of vascular consultation Physical Exam Const: COMMON NORMALS: no acute distress and patient oriented x3 Resp: COMMON NORMALS: normal respiratory effort, No retractions, No use of accessory muscles and clear to auscultation bilaterally AUSCULTATION: clear to auscultation bilaterally Cardio: COMMON NORMALS: regular rate, regular rhythm, S1 normal heart sound present and S2 normal heart sound present RATE: regular rate RHYTHM: regular rhythm HEART SOUNDS: S1 normal heart sound present and S2 normal heart sound present GI: COMMON NORMALS: Normal to inspection, nondistended, normoactive bowel sounds present and non-tender Extremity: COMMON NORMALS: no pedal edema Neuro: COMMON NORMALS: patient oriented x3 Psych: COMMON NORMALS: mental status grossly normal Skin: NARRATIVE SKIN EXAM: Left lower quadrant, - Area of cellulitis significantly impro monika, - No underlying abscess palpated - Slight purulence at opening, measuring 1 x 1 cm Discharge Data Studies Completed and Pending Pending at discharge Category Date Time Status Blood Culture Stat Lab 09/05/25 17:12 Results MRSA PCR OZH (swab) Routine Lab 09/07/25 08:41 Uncollected Wound Culture and Gram Stain Routine Lab 09/05/25 17:55 Results Laboratory Results WBC 8.14 10^3/uL (3.29-11.43) 09/07/25 09:25 RBC 4.26 10^6/uL (3.85-5.65) 09/07/25 09:25 Hgb 12.60 g/dL (11.27-16.99) 09/07/25 09:25 Hct 38.0 % (37-53) 09/07/25 09:25 MCV 89.2 fl (82-101) 09/07/25 09:25 MCH 29.6 pg (27-33) 09/07/25 09:25 MCHC 33.2 g/dL (30-55) 09/07/25 09:25 RDW 14.6 % (12.1-15.1) 09/07/25 09:25 Plt Count 217 10^3/cmm (157-399) 09/07/25 09:25 MPV 9.1 fL (7.4-10.4) 09/07/25 09:25 Neut % (Auto) 71.5 % 09/07/25 09:25 Lymph % (Auto) 16.1 % 09/07/25 09:25 Dougherty % (Auto) 9.7 % 09/07/25 09:25 Eos % (Auto) 1.8 % 09/07/25 09: Baso % (Auto) 0.5 % 09/07/25 09:25 Neut # (Auto) 5.82 10^3/uL (1.8-7.7) 09/07/25 09:25 Lymph # (Auto) 1.3 10^3/uL (0.8-4.8) 11/29/25 09:25 Dougherty # (Auto) 0.8 10^3/uL (0.2-0.9) 09/07/25 09:25 Eos # (Auto) 0.2 10^3/uL (0.0-0.8) 09/07/25 09:25 Baso # (Auto) 0.0 10^3/uL (0.0-0.1) 09/07/25 09:25 Nucleated RBC % (auto) 0 % 09/07/25 09:25 Nucleated RBCs # 0.0 /100WBC 09/07/25 09:25 ESR 31 mm/hr (0-10) H 09/05/25 17:10 Sodium 138 mmol/L (136-145) 09/07/25 09:25 Potassium 3.7 mmol/L (3.5-5.1) 09/07/25 09:25 Chloride 104 mmol/L (98-107) 09/07/25 09:25 Carbon Dioxide 23 mmol/L (22-29) 09/07/25 09:25 Anion Gap 14.7 (5-19) 09/07/25 09:25 BUN 6 mg/dL (8-23) L 09/07/25 09:25 Creatinine 1.0 mg/dL (0.7-1.2) 09/07/25 09:25 GFR Calculation 75.7 mL/min (90-130) L 09/07/25 09:25 Glucose 138 mg/dL (65-115) H 09/07/25 09:25 Calculated Osmolality 286 mOsm/kg (285-295) 09/07/25 09:25 Lactic Acid 0.9 mmol/L (0.5-2.2) 09/05/25 17:10 Calcium 8.7 mg/dL (8.5-10.5) 09/07/25 09:25 Total Bilirubin 0.6 mg/dL (0.15-1.2) 09/07/25 09:25 AST 15 U/L (0-40) 09/07/25 09:25 ALT 17 U/L (0-41) 09/07/25 09:25 Alkaline Phosphatase 95 U/L (40-130) 09/07/25 09:25 C-Reactive Protein 42.7 mg/L (0.0-4.9) H 09/07/25 09:25 Total Protein 6.7 g/dL (6.6-8.7) 09/07/25 09:25 Albumin 3.5 g/dL (3.5-5.2) 09/07/25 09:25 Globulin 3.2 g/dL (1.3-4.6) 09/07/25 09:25 Vancomycin Trough 25.1 ug/mL (10-15) H 09/06/25 17:39 Vitals Last Vital Signs Temp 97.7 F 09/07/25 07:38 Pulse 77 09/07/25 07:38 Resp 16 09/07/25 07:38 BP 134/76 09/07/25 07:38 Pulse Ox 98 09/07/25 07:38 O2 Del Method Nasal Cannula 09/07/25 07:38 O2 Flow Rate 3 09/07/25 07:38 Discharge Plan Discharge Patient Disposition: Home Condition: Stable Prescriptions: New doxycycline hyclate 100 mg tablet 100 mg PO BID 7 Days Qty: 14 0RF amoxicillin-pot clavulanate 875-125 mg tablet 1 tab PO BID 7 Days Qty: 14 0RF Triple Antibiotic 3.5mg-400 unit- 5,000 unit/gram ointment 1 applic topical BID 7 Days Qty: 28 0RF Continued atorvastatin 40 mg tablet 40 mg PO DAILY risperidone 1 mg tablet 1 mg PO BID buspirone 10 mg tablet 10 mg PO BID enoxaparin 80 mg/0.8 mL syringe 80 mg SUBCUT Q12H famotidine 40 mg tablet 40 mg PO BID tiotropium bromide [Spiriva with HandiHaler] 18 mcg capsule, w/inhalation device 18 mcg INHALATION DAILY gabapentin 300 mg capsule 600 mg PO TID albuterol sulfate 90 mcg/actuation HFA aerosol inhaler 2 puff INHALATION Q4H PRN (Reason: Shortness Of Breath Or Wheezing) baclofen 10 mg tablet 10 mg PO TID Discharge Order = DC NOW: Discharge Order (Routine); Ordered 09/07/25 Ordered By: Bharat Govea Referrals: Sanju Geronimo MD [Physician, Wound Care] - 1 week Discharge Diet: Cardiac Discharge Activity: Resume usual activity Patient Instructions: Opioid Safety, Patient Portal & Clint Instructions Activity Restrictions/Additional Instructions: - Please keep area clean and dry -Daily dressing changes - Please continue antibiotics in 7 days - Avoid Lovenox injections in the area surrounding area of cellulitis - Follow-up with primary care Discharge Attestations Time Spent in Discharge Care*: greater than 30 min Status at Discharge: Cognitive status at discharge: cognitively intact , Behavioral status at discharge: cooperative , Quality Metrics Clinical Quality Measures [ No reported AMI, CVA or VTE this stay] Coding Level of Care Code 58099 Total time (in minutes) for Discharge: 45 Diagnoses Abdominal wall cellulitis L03.311 Abdominal wall abscess L02.211 Chronic thrombosis of inferior vena cava I82.221 COPD without exacerbation J44.9 GERD (gastroesophageal reflux disease) K21.9 Anxiety F41.9 HLD (hyperlipidemia) E78.5 Chronic back pain M54.9; G89.29 RLS (restless legs syndrome) G25.81
--- NOTE | 2025-09-07 13:04 | PC.NURSE ---
Discussed discharge new medications and continued medications with patient. Went over follow up appointments and instructed when to call the office if they have not called him within two business days. Informed patient medications went to the [facility] in [place]. [facility]. Patient verbalized understanding
--- NOTE | 2025-09-07 13:17 | PC.NURSE ---
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 Patient was discharged at 1239 and taken out at 1246
[2025-09-07 13:37] LABS: MRSA PCR OZH (swab) NOT DETECTED (Negative)
== END 2025-09-07 12:46 | disposition home or self-care (01) | DRG 602 ==
PROVIDERS: Clinical Nurse Specialist Acute Care; Nurse Practitioner Gerontology; Admitting Provider Internal Medicine; PCP Family Medicine; Visit Provider Family Medicine
DX: L03.311 Cellulitis of abdominal wall (principal); I82.221 Chronic embolism and thrombosis of inferior vena cava; L02.211 Cutaneous abscess of abdominal wall; B95.62 Methicillin resistant Staphylococcus aureus infection as the cause of diseases classified elsewhere; K04.7 Periapical abscess without sinus; J44.9 Chronic obstructive pulmonary disease, unspecified; K21.9 Gastro-esophageal reflux disease without esophagitis; F41.1 Generalized anxiety disorder; E78.5 Hyperlipidemia, unspecified; G89.29 Other chronic pain; M54.9 Dorsalgia, unspecified; G25.81 Restless legs syndrome; F10.20 Alcohol dependence, uncomplicated; F15.11 Other stimulant abuse, in remission; F32.A Depression, unspecified; I10 Essential (primary) hypertension; F17.210 Nicotine dependence, cigarettes, uncomplicated; Z95.828 Presence of other vascular implants and grafts; Z95.820 Peripheral vascular angioplasty status with implants and grafts
CPT/HCPCS: 36415; 80048; 80053; 80202; 83605; 85025; 85651; 86140; 87040; 87070; 87075; 87077; 87186; 87205; 94640; 94664; 96372; G0379; J1650; J2543; J3373; J7050; J9999

== ENCOUNTER → 2025-09-10 13:05 | Outpatient (BNVA) | payer MEDICARE, SELFPAY | PROVIDERS: PCP Family Medicine; Visit Provider Thoracic Surgery (Cardiothoracic Vascular Surgery) | DX: I96 Gangrene, not elsewhere classified (principal); L02.211 Cutaneous abscess of abdominal wall; L03.311 Cellulitis of abdominal wall | CPT/HCPCS: 10060; 87070; 87077; 87176; 87186; 87205; 99213; A6219; A6446 ==

== ENCOUNTER → 2025-09-17 13:45 | Outpatient (BNVA) | payer MEDICARE, SELFPAY | PROVIDERS: PCP Family Medicine; Visit Provider Thoracic Surgery (Cardiothoracic Vascular Surgery) | DX: I96 Gangrene, not elsewhere classified (principal); L98.491 Non-pressure chronic ulcer of skin of other sites limited to breakdown of skin | CPT/HCPCS: 97597; A6446 ==